=== PATIENT | female | born 1965 | race African-American/Black ===

== ENCOUNTER 2017-12-07 21:14 | Emergency (ER) | payer OTHER ==
--- NOTE | 2017-12-07 22:27 | ER ---
Nurse's Notes [facility] Name: Raúl Rayo Age: 52 yrs Sex: Female : 1965 Arrival Date: 12/07/2017 Time: 21:16 Bed 12 Private MD: Artemio Brunner V Diagnosis: Cutaneous abscess of right lower limb Presentation: 12/07 21:27 Presenting complaint: Patient states: Abscess to right lower leg that she noticed on lp1 , worse now; redness around site, pus filled. Transition of care: patient was not received from another setting of care. Onset of symptoms was December 07, 2017. Care prior to arrival: None. 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 - Social history:: Smoking status: Patient/guardian denies using tobacco. Screenin:30 Abuse screen: Denies threats or abuse. Denies injuries from another. Nutritional lp1 screening: No deficits noted. Tuberculosis screening: No symptoms or risk factors identified. Fall Risk None identified. Assessment: 21:42 General: Appears in no apparent distress. uncomfortable, Behavior is calm, cooperative, bs1 appropriate for age. Pain: Complains of pain in right lower leg/chin Pain does not radiate. Pain currently is 7 out of 10 on a pain scale. Quality of pain is described as throbbing. Neuro: Level of Consciousness is awake, alert, obeys commands, Oriented to person, place, time, situation, Appropriate for age. Cardiovascular: Denies chest pain, lightheadedness, palpitations, shortness of breath, Heart tones S1 S2 present Capillary refill < 3 seconds Patient's skin is warm and dry. Respiratory: Airway is patent Trachea midline Respiratory effort is even, unlabored, Respiratory pattern is regular, symmetrical, Breath sounds are clear bilaterally. Denies shortness of breath at rest, on exertion. GI: No deficits noted. No signs and/or symptoms were reported involving the gastrointestinal system. : No deficits noted. No signs and/or symptoms were reported regarding the genitourinary system. EENT: No deficits noted. No signs and/or symptoms were reported regarding the EENT system. Derm: Skin abscess. puss pocket noted to right lower leg/chin. Around the site, leg swollen/red. Hot to the touch. Musculoskeletal: Circulation, motion, and sensation intact. Capillary refill < 3 seconds, Range of motion: limited in right lower leg Swelling present in right lower leg. 22:20 Reassessment: No changes from previously documented assessment. Patient and/or family bs1 updated on plan of care and expected duration. Pain level reassessed. Patient is alert, oriented x 3, equal unlabored respirations, skin warm/dry/pink. 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 Patient tolerated well. Wound culture sent. Vital Signs: 21:29 BP 147 / 89; Pulse 102; Resp 18; Temp 98.5(O); Pulse Ox 97% on R/A; Weight 132.45 kg; lp1 Height 5 ft. 8 in. (172.72 cm); Pain 7/10; 22:40 BP 136 / 72; Pulse 92; Resp 14; Temp 98.0(O); Pulse Ox 98% on R/A; Pain 4/10; bs1 21:29 Body Mass Index 44.40 (132.45 kg, 172.72 cm) lp1 ED Course: 21:16 Patient arrived in ED. mr 21:16 Artemio Brunner MD is Private Physician. mr 21:27 Triage completed. lp1 21:27 Arm band placed on left wrist. lp1 21:39 Juliane Santoro RN is Primary Nurse. bs1 21:42 [facility] pm1 21:42 Simón Paz MD is Attending Physician. pm1 21:47 Patient has correct armband on for positive identification. Call light in reach. bs1 22:20 Assist provider with I \T\ D: of an abscess on right lower leg/chin Set up I\T\D tray. bs 1 Performed by Flako Shelton NP Culture sent to lab. Dressing with 4X4s, tape wrapped in kerlix Patient tolerated well. 22:26 Artemio Brunner MD is Referral Physician. pm1 22:31 Wound Culture Sent. bs1 22:42 Patient did not have IV access during this emergency room visit. bs1 Administered Medications: 22:25 Drug: Lidocaine (1 %) 5 ml Volume: 5 ml; Route: Infiltration; bs1 22:39 Follow up: Response: No adverse reaction bs1 22:38 Drug: Bactrim (160 mg-800 mg (DS) 1 tablet Route: PO; bs1 22:38 Follow up: Response: No adverse reaction bs1 Outcome: 22:26 Discharge ordered by . pm1 22:41 Discharged to home ambulatory. bs1 22:41 Condition: stable 22:41 Discharge instructions given to patient, Instructed on discharge instructions, follow up and referral plans. medication usage, Demonstrated understanding of instructions, follow-up care, medications, Prescriptions given X 1. 22:42 Patient left the ED. bs1 Addendum: 12/11/2017 12:12 Addendum: Culture Results: Positive urine culture. No further action required. Bacteria s s sensitive to prescribed antibiotic. Signatures: Caitlin Riggs mr Mercedes Camarillo, RN RN Lilia Downs RN RN lp1 Flako Shelton NP PACKING AND WRAPPING SUPERVISOR pm1 Juliane Santoro RN RN bs1
--- NOTE | 2017-12-07 22:27 | EDPHYS ---
Physician Documentation [facility] Name: Raúl Rayo Age: 52 yrs Sex: Female : 1965 Arrival Date: 12/07/2017 Time: 21:16 Bed 12 Private MD: Artemio Brunner V ED Physician Simón Paz HPI: 12/07 22:20 This 52 yrs old Black Female presents to ER via Ambulatory with complaints of Abscess. pm1 22:20 The patient presents with an abscess of the right ruvalcaba. Description: pointed. Onset: pm1 The symptoms/episode began/occurred 3 day(s) ago. Possible cause(s): unknown. Associated signs and symptoms: Pertinent negatives: discharge, drainage, fever. Modifying factors: the symptoms are alleviated by nothing, the symptoms are aggravated by nothing. The patient has experienced a previous episode, many years ago. The patient has not recently seen a physician, the patient's primary care provider is Dr. Brunner. Patient with small pimple like lesion to right ruvalcaba that started on . Increased in size to dime sized with some redness around it. No fevers. No drainage. 22:20 Tetanus less than 5 years old. 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 - Social history:: Smoking status: Patient/guardian denies using tobacco. ROS: 22:20 Constitutional: Negative for fever, chills, and weight loss, Eyes: Negative for injury, pm1 pain, redness, and discharge, ENT: Negative for injury, pain, and discharge, Neck: Negative for injury, pain, and swelling, Cardiovascular: Negative for chest pain, palpitations, and edema, Respiratory: Negative for shortness of breath, cough, wheezing, and pleuritic chest pain, Abdomen/GI: Negative for abdominal pain, nausea, vomiting, diarrhea, and constipation, Back: Negative for injury and pain, MS/Extremity: Negative for injury and deformity. 22:20 Skin: Positive for abscess, of the right ruvalcaba. Exam: 22:20 Constitutional: This is a well developed, well nourished patient who is awake, alert, pm1 and in no acute distress. Head/Face: Normocephalic, atraumatic. Chest/axilla: Normal chest wall appearance and motion. Nontender with no deformity. No lesions are appreciated. Cardiovascular: Regular rate and rhythm with a normal S1 and S2. No gallops, murmurs, or rubs. No pulse deficits. Respiratory: Lungs have equal breath sounds bilaterally, clear to auscultation and percussion. No rales, rhonchi or wheezes noted. No increased work of breathing, no retractions or nasal flaring. Abdomen/GI: Soft, non-tender, with normal bowel sounds. No distension or tympany. No guarding or rebound. No evidence of tenderness throughout. Back: No spinal tenderness. No costovertebral tenderness. Full range of motion. 22:20 Skin: abscess, that is small, approximately 1 cm(s), of the right ruvalcaba, small surrounding redness, no fluctuance or induration. Vital Signs: 21:29 BP 147 / 89; Pulse 102; Resp 18; Temp 98.5(O); Pulse Ox 97% on R/A; Weight 132.45 kg; lp1 Height 5 ft. 8 in. (172.72 cm); Pain 7/10; 22:40 BP 136 / 72; Pulse 92; Resp 14; Temp 98.0(O); Pulse Ox 98% on R/A; Pain 4/10; bs1 21:29 Body Mass Index 44.40 (132.45 kg, 172.72 cm) lp1 Procedures: 22:25 I \T\ D: Incision and drainage was performed for an abscess of the right right ruvalcaba pm1 Prepped with Betadine, Anesthetized with 3 ml's 1% Lidocaine. Incised with #11 blade. Drained small amount purulent fluid. Packed with not packable. Dressing: sterile 4x4 gauze, the patient tolerated the procedure well. MDM: 21:46 Patient medically screened. pm1 22:25 Data reviewed: vital signs. Data interpreted: Pulse oximetry: on room air is 97 %. pm1 Interpretation: normal. Counseling: I had a detailed discussion with the patient and/or guardian regarding: the historical points, exam findings, and any diagnostic results supporting the discharge/admit diagnosis, the need for outpatient follow up, to return to the emergency department if symptoms worsen or persist or if there are any questions or concerns that arise at home. 12/07 22:08 Order name: Wound Culture pm1 12/07 22:01 Order name: Incision \T\ Drainage Setup; Complete Time: 22:32 pm1 Administered Medications: 22:25 Drug: Lidocaine (1 %) 5 ml Volume: 5 ml; Route: Infiltration; bs1 22:39 Follow up: Response: No adverse reaction bs1 22:38 Drug: Bactrim (160 mg-800 mg (DS) 1 tablet Route: PO; bs1 22:38 Follow up: Response: No adverse reaction bs1 Disposition: 12/07/17 22:26 Discharged to Home. Impression: Cutaneous abscess of right lower limb. - Condition is Stable. - Discharge Instructions: Abscess, Incision and Drainage. - Prescriptions for Bactrim DS 800- 160 mg Oral Tablet - take 1 tablet by ORAL route every 12 hours for 10 days; 20 tablet. - Medication Reconciliation Form, Thank You Letter, Antibiotic Education form. - Follow up: Emergency Department; When: As needed; Reason: Worsening of condition. Follow up: Artemio Brunner MD; When: 2 - 3 days; Reason: Recheck today's complaints, Continuance of care, Re-evaluation by your physician. - Problem is new. - Symptoms have improved. Addendum: 12/11/2017 06:22 Co-signature as Attending Physician, Simón Paz MD. g s Signatures: Dispatcher [employer] EDLilia Phan RN RN lp1 Flako Shelton, FILLER PICKER FILLER PICKER pm1 Simón Paz MD MD gs Salazar, Brittany, RN RN bs1
[2017-12-07] MEDS ORDERED: LIDOCAINE 1% MPF 5 ML VIAL ONE (22:30)
[2017-12-07] MEDS ORDERED: SMZ./TMP. 800/160 MG TABLET ONE (22:52)
[2017-12-07 22:59] VITALS: BP 136/72; TEMP 98; O2SAT 98
== END 2017-12-07 22:42 | disposition home or self-care (01) ==
LOC: ER 21:14
PROC: 0J9N0ZZ Drainage of Right Lower Leg Subcutaneous Tissue and Fascia, Open Approach (ICD-10-PCS; principal; 2017-12-07)
DX: L02.415 Cutaneous abscess of right lower limb (principal); I10 Essential (primary) hypertension; E11.9 Type 2 diabetes mellitus without complications; Z79.4 Long term (current) use of insulin
CPT/HCPCS: 87070; 87077; 87186; 87205; 99284

== ENCOUNTER 2020-06-10 16:13 | Inpatient (IN) | payer OTHER ==
--- OUTSIDE RECORDS SUMMARY | 2020-06-10 16:14 | XMS REPORT | Continuity of Care Document ---
:1965 Author Organization [facility] t Address [address] [place] [address] Care Team Providers Name Role Phone Camilo Coronado MD Attending Clinician Kimberley GUERRA Attending Clinician Doctor Unassigned, Name Attending Clinician Unavailable Problems This patient has no known problems. Allergies, Adverse Reactions, Alerts This patient has no known allergies or adverse reactions. Medications This patient has no known medications. Procedures This patient has no known procedures. Encounters Start End Encounter Admission Attending Care Care Encounter Source Date/Time Date/Time Type Type Clinicians Facility Department ID 2019-10-30 2019-10-31 Emergency [facility] [id number] 21:41:02 00:12:00 Andree Aragon [id number] [place] [id number] [place] [id number] 2019-10-30 2019-10-30 Urgent [facility] [id number] 20:49:10 21:04:10 Care [facility] [id number] Surgical [id number] [place] [id number] [place] 2019-10-30 2019-10-30 Orders Doctor [place]GAD[place]O [id number] 00:00:00 00:00:00 Only Unassigned, EDMOND [id number] [facility] [id number] Results This patient has no known results.
[2020-06-10] MEDS ORDERED: dexAMETHasone 10 MG/ML VIAL ONE (16:50)
[2020-06-10] MEDS ORDERED: NA CHLORIDE 0.9% 500 ML ONE (16:50)
[2020-06-10 17:26] LABS: Basophils % 0.2 % (0-1.3); Lymphocytes % 9.3 % (15.3-44.8); MPV 9.6 fL (7.6-11.3); Protime INR 1.16; RBC Red Blood Cell Count 4.72 M/uL (3.86-4.86)
[2020-06-10 18:01] LABS: ALT/SGPT 26 U/L (12-78); AST/SGOT 36 U/L (15-37); Albumin 3.2 g/dL (3.4-5.0); Alkaline Phosphatase 59 U/L (45-117); BUN Blood Urea Nitrogen 10 mg/dL (7-18); Bicarbonate 21 mmol/L (21-32); Bilirubin Direct 0.1 mg/dL (0-0.2); Bilirubin Total 0.3 mg/dL (0.2-1.0); Glucose Level 149 mg/dL (74-106); Magnesium 2.2 mg/dL (1.8-2.4); NT PRO-BNP 41 pg/mL (<125); Potassium 3.9 mmol/L (3.5-5.1); Protein, Total 8.8 g/dL (6.4-8.2); Sodium Level 139 mmol/L (136-145); Troponin (Emerg Dept Use Only) < 0.02 ng/mL (0.0-0.045)
--- NOTE | 2020-06-10 18:36 | RAD REPORT ---
EXAM DESCRIPTION: RAD - Chest Single View - 06/10/2020 6:04 pm CLINICAL HISTORY: SOB, history positive COVID test and family member COMPARISON: Two view chest August 2018 TECHNIQUE: AP portable chest image was obtained 06/10/2020 6:04 pm . FINDINGS: Consolidation is present in the inferior aspect of the right upper lobe with a large conso lidation in the lateral right lung base. Airspace opacification present in the mid lower left lung fi eld. Very slight right tracheal shift present. Heart size is normal. No measurable pleural effusion a nd no pneumothorax. No acute bony abnormality seen. No acute aortic findings suspected. IMPRESSION: Bilateral airspace disease with large areas consolidation in the right lung field. Given the provided history, bilateral COVID pneumonia is the most likely etiology.
--- NOTE | 2020-06-10 18:45 | EDPHYS ---
Physician Documentation [facility] Name: Raúl Rayo Age: 54 yrs Sex: Female : 1965 Arrival Date: 06/10/2020 Time: 16:22 Bed 4 Private MD: Gerard Parada HPI: 06/10 16:35 This 54 yrs old Black Female presents to ER via EMS with complaints of Breathing cp Difficulty. 16:35 The patient has shortness of breath at rest. 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 - Social history:: Smoking status: Patient denies any tobacco usage or history of. ROS: 16:40 Constitutional: Negative for body aches, chills, fever, poor PO intake. cp 16:40 Cardiovascular: Negative for chest pain, edema, palpitations. cp 16:40 Eyes: Negative for injury, pain, redness, and discharge. cp 16:40 ENT: Negative for ear pain, sore throat, difficulty swallowing, difficulty handling secretions. 16:40 Respiratory: Positive for cough, "sounds productive", shortness of breath, at rest. 16:40 Abdomen/GI: Negative for abdominal pain, vomiting, diarrhea, constipation. 16:40 Skin: Negative for cellulitis, rash. 16:40 Neuro: Negative for altered mental status, headache, syncope, weakness. 16:40 All other systems are negative. Exam: 16:43 Constitutional: The patient appears alert, awake, non-diaphoretic, non-toxic, well cp developed, well nourished, in obvious distress, moderately distressed. 16:43 Head/Face: Normocephalic, atraumatic. cp 16:43 Eyes: Periorbital structures: appear normal, Pupils: equal, round, and reactive to light and accomodation, Extraocular movements: intact throughout, Conjunctiva: normal, no exudate, no injection, Sclera: no appreciated abnormality, Lids and lashes: appear normal, bilaterally. 16:43 ENT: External ear(s): are unremarkable, Nose: is normal, Mouth: Lips: moist, Oral mucosa: pink and intact, moist, Posterior pharynx: Airway: no evidence of obstruction, patent. 16:43 Neck: ROM/movement: is normal, is supple, no meningismus, no nuchal rigidity. 16:43 Chest/axilla: Inspection: normal. 16:43 Cardiovascular: Rate: tachycardic, Rhythm: regular, Edema: is not appreciated, JVD: is not appreciated. 16:43 Respiratory: moderate respiratory distress is noted, Respirations: labored breathing, that is moderate, shallow respirations, that is moderate, tachypnea, that is moderate, Breath sounds: bronchial sounds, that are moderate, are heard diffusely, stridor, is not appreciated, wheezing: is not appreciated. 16:43 Abdomen/GI: Inspection: abdomen appears normal, Palpation: abdomen is soft and non-tender, in all quadrants, rebound tenderness, is not appreciated, involuntary guarding, is not appreciated. 16:43 Back: ROM is normal. 16:43 Skin: no rash present. 16:43 Neuro: Orientation: to person, place \\T\\ time. Mentation: is normal, Motor: moves all fours, strength is normal. 16:57 ECG was reviewed by the Attending Physician. cp Vital Signs: 16:22 BP 158 / 91; Pulse 116; Resp 38; Pulse Ox 57% on R/A; Weight 130.63 kg; Height 5 ft. 8 em in. (172.72 cm); Pain 5/10; 16:23 Pulse Ox 85% on Non-rebreather mask; em 16:30 Temp 99.0; iw 17:21 BP 137 / 82; Pulse 117; Resp 18; Pulse Ox 92% on 70% BiPAP; em 18:00 BP 136 / 71; Pulse 113; Resp 24; Pulse Ox 93% on BiPAP; em 19:24 BP 150 / 88; Pulse 115; Resp 20; Pulse Ox 94% on BiPAP; mg2 20:30 BP 146 / 87; Pulse 108; Resp 22; Pulse Ox 93% on BiPAP; sg 21:33 BP 158 / 89; Pulse 108; Resp 20; Temp 99.1; Pulse Ox 93% on BiPAP; sg 16:22 Body Mass Index 43.79 (130.63 kg, 172.72 cm) em MDM: 16:28 Patient medically screened. khalif 17:59 Physician consultation: Artemio Brunner MD was called at 17:59, left message on voicemail. 18:00 Data reviewed: vital signs, nurses notes, lab test result(s), EKG, radiologic studies, cp plain films. 18:00 Test interpretation: by ED physician or midlevel provider: ECG, chest xray shows cp bilateral lung opacification. 18:42 Physician consultation: Artemio Brunner MD was called at 18:43, was contacted at 18:43, regarding admission, to the ICU, patient's condition, would like consultation with Dr. Parra. 06/10 16:27 Order name: Basic Metabolic Panel cp 06/10 16:27 Order name: CBC with Diff cp 06/10 16:27 Order name: LFT's cp 06/10 16:27 Order name: Magnesium cp 06/10 16:27 Order name: NT PRO-BNP cp 06/10 16:27 Order name: PT-INR; Complete Time: 17:51 cp 06/10 16:27 Order name: Troponin (emerg Dept Use Only); Complete Time: 18:29 cp 06/10 16:27 Order name: Blood Culture Adult (2) cp 06/10 16:27 Order name: Procalcitonin; Complete Time: 18:29 cp 06/10 16:27 Order name: Lactate; Complete Time: 17:51 cp 06/10 17:53 Interpretation: Within normal limits. cp 06/10 16:27 Order name: Flu; Complete Time: 18:29 cp 06/10 16:27 Order name: D-Dimer; Complete Time: 17:51 cp 06/10 17:52 Interpretation: D-DIMER 496; Reviewed. cp 06/10 16:27 Order name: Basic Metabolic Panel; Complete Time: 18:29 EDMS 06/10 16:27 Order name: CRP; Complete Time: 18:29 cp 06/10 16:27 Order name: CBC with Automated Diff; Complete Time: 20:53 EDMS 06/10 17:52 Interpretation: Normal except: WBC 11.1; RDW 15.6; RAISSA% 87.8; LYM% 9.3; MN% 2.7; NEUT A cp 9.7. 06/10 16:27 Order name: Liver (Hepatic) Function; Complete Time: 18:29 EDMS 06/10 16:27 Order name: Magnesium; Complete Time: 18:29 EDMS 06/10 16:27 Order name: NT PRO-BNP; Complete Time: 18:29 EDMS 06/10 18:13 Order name: SARS-COV-2 RT PCR; Complete Time: 20:53 EDMS 06/10 19:36 Order name: Basic Metabolic Panel EDMS 06/10 19:36 Order name: Basic Metabolic Panel EDMS 06/10 19:36 Order name: CBC with Automated Diff EDMS 06/10 19:36 Order name: CBC with Automated Diff EDMS 06/10 19:36 Order name: Lipid Profile EDMS 06/10 19:36 Order name: Lipid Profile EDMS 06/10 19:36 Order name: Troponin I EDMS 06/10 19:36 Order name: Troponin I; Complete Time: 21:56 EDMS 06/10 19:36 Order name: Troponin I EDMS 06/10 20:17 Order name: Manual Differential; Complete Time: 20:54 EDMS 06/10 20:54 Interpretation: Normal except: SEGS 85; BANDS [F] 2; LYM 13. cp 06/10 16:27 Order name: XRAY Chest (1 view); Complete Time: 20:54 cp 06/10 16:27 Order name: EKG; Complete Time: 16:28 cp 06/10 16:27 Order name: Cardiac monitoring; Complete Time: 17:20 cp 06/10 16:27 Order name: EKG - Nurse/Tech; Complete Time: 17:20 cp 06/10 16:27 Order name: IV Saline Lock; Complete Time: 17:20 cp 06/10 16:27 Order name: Labs collected and sent; Complete Time: 16:29 cp 06/10 16:27 Order name: O2 Per Protocol; Complete Time: 16:29 cp 06/10 16:27 Order name: O2 Sat Monitoring; Complete Time: 16:29 cp 06/10 16:27 Order name: Document PUI#; Complete Time: 16:28 cp 06/10 16:27 Order name: Droplet/Contact Precautions; Complete Time: 16:29 cp 06/10 16:27 Order name: Notify Health Dept [phone]/ ; Complete Time: 16:28 cp 06/10 18:14 Order name: BIPAP eb 06/10 19:36 Order name: CONS Physician Consult EDNM 06/10 19:36 Order name: Respiratory Therapy Consult EDNM 06/10 19:36 Order name: Consistent Carb (ADA) [address] EDNM 06/10 20:28 Order name: Urine Dipstick--Ancillary (enter results) ar5 06/10 20:53 Order name: Accucheck Blood Glucose; Complete Time: 21:01 cp 06/10 21:13 Order name: Glucose, Ancillary Testing; Complete Time: 21:56 EDMS EC:57 Rate is 113 beats/min. Rhythm is regular. AR interval is normal. QRS interval is cp normal. QT interval is normal. Interpreted by me. Reviewed by me. Administered Medications: 17:00 Drug: Decadron - Dexamethasone 6 mg Route: IVP; Site: left antecubital; em 22:37 Follow up: Response: No adverse reaction mg2 17:00 Drug: NS 0.9% 500 ml Route: IV; Rate: 1 bolus; Site: left antecubital; em 22:36 Follow up: Response: No adverse reaction; IV Status: Completed infusion; IV Intake: mg2 500ml 19:24 Drug: Rocephin - (cefTRIAXone) 2 grams Route: IVPB; Infused Over: 30 mins; Site: left mg2 antecubital; 22:37 Follow up: Response: No adverse reaction; IV Status: Completed infusion mg2 19:24 Drug: Zithromax 500 mg Route: IVPB; Infused Over: 1 hrs; Site: left antecubital; mg2 22:36 Follow up: Response: No adverse reaction; IV Status: Completed infusion; IV Intake: mg2 250ml Point of Care Testing: Blood Glucose: 21:02 Blood Glucose: 185 mg/dL; sg Ranges: Critical Glucose Levels:Adult <50 mg/dl or >400 mg/dl <40 mg/dl or >180 mg/dl Disposition: 06/11 06:03 Co-signature as Attending Physician, Gerard Jesus MD I agree with the assessment and khalif plan of care. Disposition: 06/10/20 18:44 Hospitalization ordered by Artemio Brunner for Inpatient Admission. Preliminary diagnosis are Respiratory failure, unspecified with hypoxia, Pneumonia in diseases classified elsewhere, Coronavirus infection, unspecified. - Bed requested for Intensive Care Unit. - Status is Inpatient Admission. mg2 - Condition is Serious. - Problem is new. - Symptoms have improved. Signatures: Dispatcher [employer] EDNM Gerard Jesus MD MD cha Munoz, Edgar, RN RN em Rory Johnson, CAMPUS SAFETY OFFICER-C CAMPUS SAFETY OFFICER-Cla1 Gerard Johnson PA PA cp Sharonda Cox, RN RN cg Devang Rooney RN RN mg2 Corrections: (The following items were deleted from the chart) 06/10 18:13 16:28 CORONAVIRUS+MR.LAB.BRZ ordered. [facility] 20:16 18:44 Hospitalization Ordered by Artemio Brunner MD for Inpatient Admission. Preliminary cp diagnosis is Respiratory failure, unspecified with hypoxia; Pneumonia in diseases classified elsewhere. Bed requested for Intensive Care Unit. Status is Inpatient Admission. Condition is Serious. Problem is new. Symptoms have improved. 21:54 20:16 06/10/2020 18:44 Hospitalization Ordered by Artemio Brunner MD for Inpatient cg Admission. Preliminary diagnosis is Respiratory failure, unspecified with hypoxia; Pneumonia in diseases classified elsewhere; Coronavirus infection, unspecified. Bed requested for Intensive Care Unit. Status is Inpatient Admission. Condition is Serious. Problem is new. Symptoms have improved. 22:43 21:54 06/10/2020 18:44 Hospitalization Ordered by Artemio Brunner MD for Inpatient mg2 Admission. Preliminary diagnosis is Respiratory failure, unspecified with hypoxia; Pneumonia in diseases classified elsewhere; Coronavirus infection, unspecified. Bed requested for Intensive Care Unit. Status is Inpatient Admission. Condition is Serious. Problem is new. Symptoms have improved. 06/11 04:08 06/10 16:15 Constitutional: The patient appears alert, awake, non-diaphoretic, cp non-toxic, well developed, well nourished, in obvious distress, moderately distressed, cp
--- NOTE | 2020-06-10 18:45 | ER ---
Nurse's Notes [facility] Name: Raúl Rayo Age: 54 yrs Sex: Female : 1965 Arrival Date: 06/10/2020 Time: 16:22 Bed 4 Private MD: Diagnosis: Respiratory failure, unspecified with hypoxia;Pneumonia in diseases classified elsewhere;Coronavirus infection, unspecified Presentation: 06/10 16:22 Chief complaint: EMS states: has been feeling bad for about a week, was 70% at RA on em arrival, placed on nonrebreather and was in the low 92 %, pt reports fever, one family member tested positive for covid a few days ago, sinus tach on monitor. Coronavirus screen: Client denies travel out of the [place] in the last 14 days. cough unrelated to allergies, difficulty breathing, fever, Client presents with at least one sign or symptom that may indicate coronavirus-19. Standard/surgical mask placed on the client. Provider contacted for isolation considerations. Ebola Screen: Patient negative for fever greater than or equal to 101.5 degrees Fahrenheit, and additional compatible Ebola Virus Disease symptoms Patient denies exposure to infectious person. Patient denies travel to an Ebola-affected area in the 21 days before illness onset. No symptoms or risks identified at this time. Initial Sepsis Screen: Does the patient meet any 2 criteria? RR > 20 per min. HR > 90 bpm. Yes Does the patient have a suspected source of infection? Yes: Productive cough/pneumonia If YES to both, name of provider notified: Gerard MCWILLIAMS. Risk Assessment: Do you want to hurt yourself or someone else? Patient reports no desire to harm self or others. Onset of symptoms was June 03, 2020. 16:22 Method Of Arrival: [facility] em 16:22 Acuity: DULCE 2 em Triage Assessment: 22:31 General: Appears in no apparent distress. comfortable. Respiratory: Onset: The mg2 symptoms/episode began/occurred gradually, the patient has mild shortness of breath. PRODUCTION ASSOCIATE: 16:27 LMP N/A - Post-menopause em Historical: - Allergies: 16:27 No Known Allergies; em - PMHx: 16:27 Diabetes - IDDM; Hypertension; neuropathy; em - PSHx: 16:27 neck surgery; em - Immunization history:: Adult Immunizations up to date. - Social history:: Smoking status: Patient denies any tobacco usage or history of. Screenin:28 Abuse screen: Denies threats or abuse. Nutritional screening: No deficits noted. em Tuberculosis screening: No symptoms or risk factors identified. Fall Risk None identified. Assessment: 16:20 General: Appears uncomfortable, obese, Behavior is cooperative, restless, Reports fever em for > 3 days. Pain: Complains of pain in right arm Pain currently is 5 out of 10 on a pain scale. Neuro: Level of Consciousness is awake, alert, obeys commands, Oriented to person, place, time, situation, Appropriate for age. Cardiovascular: Patient's skin is warm and dry. Rhythm is sinus tachycardia. Respiratory: Reports cough that is non-productive, Airway is patent Respiratory effort is even, labored, Respiratory pattern is tachypnea Breath sounds are diminished bilaterally. GI: Patient currently denies nausea, vomiting. Derm: Skin is intact, is healthy with good turgor, Skin is pink, warm \T\ dry. Musculoskeletal: Capillary refill < 3 seconds, Range of motion: intact in all extremities. 16:29 Reassessment: RT at bedside putting pt on bipap. em 16:50 Reassessment: Patient appears in no apparent distress at this time. Patient states em feeling better. Patient states symptoms have improved. 17:50 Reassessment: Patient appears in no apparent distress at this time. Patient and/or em family updated on plan of care and expected duration. Pain level reassessed. Patient is alert, oriented x 3, equal unlabored respirations, skin warm/dry/pink. 19:24 Reassessment: patient in bipap. not in distress. Patient denies pain at this time. mg2 19:55 Reassessment: per Sherin inside lab, pt is positive for COVID at this time. sg 20:27 Reassessment: patient's sister Elizabeth updated about the patient's condition. mg2 Vital Signs: 16:22 BP 158 / 91; Pulse 116; Resp 38; Pulse Ox 57% on R/A; Weight 130.63 kg; Height 5 ft. 8 em in. (172.72 cm); Pain 5/10; 16:23 Pulse Ox 85% on Non-rebreather mask; em 16:30 Temp 99.0; iw 17:21 BP 137 / 82; Pulse 117; Resp 18; Pulse Ox 92% on 70% BiPAP; em 18:00 BP 136 / 71; Pulse 113; Resp 24; Pulse Ox 93% on BiPAP; em 19:24 BP 150 / 88; Pulse 115; Resp 20; Pulse Ox 94% on BiPAP; mg2 20:30 BP 146 / 87; Pulse 108; Resp 22; Pulse Ox 93% on BiPAP; sg 21:33 BP 158 / 89; Pulse 108; Resp 20; Temp 99.1; Pulse Ox 93% on BiPAP; sg 16:22 Body Mass Index 43.79 (130.63 kg, 172.72 cm) em ED Course: 16:22 Patient arrived in ED. em 16:22 Gerard Johnson PA is PHCP. cp 16:23 Gerard Jesus MD is Attending Physician. cp 16:26 Triage completed. em 16:27 Arm band placed on. em 16:28 Praful Castellon, RN is Primary Nurse. em 16:28 Patient has correct armband on for positive identification. Placed in gown. Bed in low em position. Call light in reach. Side rails up X2. compliance monitor on. Pulse ox on. NIBP on. 17:00 Initial lab(s) drawn, by wa, sent to lab. Inserted saline lock: 22 gauge in left em antecubital area, using aseptic technique. Blood collected. 18:04 XRAY Chest (1 view) In Process Unspecified. EDMS 18:43 Artemio Brunner MD is Hospitalizing Provider. cp 20:15 Assisted to bedside commode. sg 20:31 Primary Nurse role handed off by Praful Castellon, RN sg 20:31 Dani Pulliam, SHARLENE is Primary Nurse. sg 22:31 No provider procedures requiring assistance completed. Patient admitted, IV remains in mg2 place. Administered Medications: 17:00 Drug: Decadron - Dexamethasone 6 mg Route: IVP; Site: left antecubital; em 22:37 Follow up: Response: No adverse reaction mg2 17:00 Drug: NS 0.9% 500 ml Route: IV; Rate: 1 bolus; Site: left antecubital; em 22:36 Follow up: Response: No adverse reaction; IV Status: Completed infusion; IV Intake: mg2 500ml 19:24 Drug: Rocephin - (cefTRIAXone) 2 grams Route: IVPB; Infused Over: 30 mins; Site: left mg2 antecubital; 22:37 Follow up: Response: No adverse reaction; IV Status: Completed infusion mg2 19:24 Drug: Zithromax 500 mg Route: IVPB; Infused Over: 1 hrs; Site: left antecubital; mg2 22:36 Follow up: Response: No adverse reaction; IV Status: Completed infusion; IV Intake: mg2 250ml Point of Care Testing: Blood Glucose: 21:02 Blood Glucose: 185 mg/dL; sg Ranges: Intake: 22:36 IV: 500ml; Total: 500ml. mg2 22:36 IV: 250ml; Total: 750ml. mg2 Outcome: 18:44 Decision to Hospitalize by Provider. cp 22:38 Admitted to ICU accompanied by tech, via stretcher, room 6, with oxygen, with chart, mg2 Report called to SHARLENE Barlow 22:38 Condition: stable 22:38 Instructed on the need for admit, Demonstrated understanding of instructions. 22:43 Patient left the ED. mg2 Signatures: Dispatcher [employer] Dani Georges RN RN sg Praful Castellon RN RN em Williams, Irene, RN RN iw Gerard Johnson, POPPY PA cp Devang Rooney RN RN mg2 Corrections: (The following items were deleted from the chart) 20:27 19:24 Reassessment: patient in bipap. not on distress. mg2 mg2
[2020-06-10] MEDS ORDERED: CEFTRIAXONE/SWI 1gm 2 GM/20 ML SYR ONE (19:20)
[2020-06-10] MEDS ORDERED: NA CHLORIDE 0.9% 250 ML ONE (19:20)
[2020-06-10] MEDS ORDERED: AZITHROMYCIN 500 MG INJ IVPB ONE (19:20)
[2020-06-10] MEDS ORDERED: GLUCAGON 1 MG/VIAL IM PRN ×2 (19:30→22:06)
[2020-06-10] MEDS ORDERED: D50W 25 GM/50 ML SYRINGE/VIAL IV PRN ×2 (19:30→22:06)
[2020-06-10] MEDS ORDERED: ONDANSETRON 4 MG/2 ML VIAL IV PRN (19:30)
[2020-06-10 20:17] LABS: Blood Morphology Comment NOT SEEN (NOT SEEN); Platelet Estimate ADEQ
[2020-06-10 22:16] LABS: Urine Blood TRACE (NEG); Urine Glucose 2+ (NEG); Urine Protein 2+ (NEG); Urine Specific Gravity 1.025 (1.005-1.030); Urine pH 5.5 (5.0-7.0)
[2020-06-10] MEDS: FAMOTIDINE 20 MG/2 ML VIAL IV SCH (23:15)
[2020-06-10] MEDS: INSULIN -REGULAR HUMAN 50 UNIT/0.5 ML ML SQ SCH (23:15)
[2020-06-10] MEDS: NA CHLORIDE 0.9% 1,000 ML IV SCH (23:15)
[2020-06-11] MEDS: NA CHLORIDE 0.9% 1,000 ML IV SCH (02:38)
[2020-06-11 05:09] LABS: Absolute Lymphocytes (CBC) 0.8 K/uL (0.7-4.9); Basophils % 0.5 % (0-1.3); Hematocrit 41.1 % (36.0-45.0); Lymphocytes % 7.9 % (15.3-44.8); MPV 9.4 fL (7.6-11.3); RBC Red Blood Cell Count 4.68 M/uL (3.86-4.86)
[2020-06-11 05:19] LABS: BUN Blood Urea Nitrogen 14 mg/dL (7-18); Bicarbonate 16 mmol/L (21-32); Glucose Level 190 mg/dL (74-106); HDL Cholesterol 49 mg/dL (40-60); LDL Cholesterol, Calculated 39 (<130); Potassium 4.5 mmol/L (3.5-5.1); Sodium Level 142 mmol/L (136-145)
[2020-06-11] MEDS: METHYLPREDNISOLONE 40 MG INJ IV SCH ×2 (05:39→17:10)
[2020-06-11] MEDS ORDERED: FUROSEMIDE 20 MG/ 2ML VIAL IV ONE (08:22)
[2020-06-11] MEDS ORDERED: CYCLOBENZAPRINE 10 MG TAB PO PRN (08:38)
[2020-06-11] MEDS ORDERED: methocarbamoL 500 MG TAB PO PRN (08:38)
--- NOTE | 2020-06-11 08:39 | P.CNS ---
Date of Consult: 06/11/20 (Telephone visit) Reason for Consult: Respiratory failure from orozco virus infect Chief Complaint: Respiratory failure shortness of breath History of Present Illness: Patient is 54 years of age has been sick for about 1 week admitted with hypoxemia family member was also tested positive a few days ago for orozco virus she has admitted here to the ICU ray hypoxic on BiPAP. History of diabetes hypertension Allergies No Known Allergies Allergy (Unverified 11/13/15 15:45) Home Medications: Cyclobenzaprine [Flexeril*] 10 mg PO TID PRN 04/18/14 Esomeprazole Mag Trihydrate [Nexium] 40 mg PO DAILY 04/18/14 Fluticasone [Flonase 50MCG Nasal [place]*] 0.05 mg IH DAILY 04/18/14 Gabapentin [Neurontin*] 400 mg PO TID 04/18/14 Losartan Potassium [Cozaar*] 100 mg PO DAILY 04/18/14 Meclizine HCl [Antivert*] 25 mg PO TID PRN 04/18/14 Bisoprolol Fumarate/Hctz [Bisoprolol-Hctz 5-6.25 mg Tab] 1 tab PO DAILY 06/11/20 Empagliflozin/Metformin HCl [Synjardy 12.5-1,000 mg Tablet] 1 tab PO DAILY 06/11/20 Montelukast [Singulair*] 10 mg PO DAILY 06/11/20 Oxybutynin Chloride [Oxybutynin Chloride ER] 1 tab PO DAILY 06/11/20 methocarbamoL [Robaxin] 500 mg PO TID PRN 06/11/20 - Past Medical/Surgical History Diabetic: Yes -: dm -: asthma -: htn -: acid reflux -: neck sx - Family History Father Medical History: Diabetes Mother Medical History: Diabetes Sister Medical History: Diabetes - Social History Alcohol use: No CD- Drugs: No Caffeine use: Yes Place of Residence: Home Physical Examination Temp Pulse Resp BP Pulse Ox 98.8 F 96 H 31 H 162/81 H 85 L 06/11/20 04:00 06/11/20 06:00 06/11/20 06:00 06/11/20 06:00 06/11/20 06:00 Laboratory Data (last 24 hrs) 06/10/20 17:00: PT 13.7 H, INR 1.16 06/10/20 17:00: WBC 11.1 H, Hgb 13.3, Hct 41.0, Plt Count 265 06/10/20 17:00: Sodium 139, Potassium 3.9, BUN 10, Creatinine 0.84, Glucose 149 H, Magnesium 2.2, Total Bilirubin 0.3, AST 36, ALT 26, Alkaline Phosphatase 59 - Problems (1) Pneumonia due to severe acute respiratory syndrome coronavirus Current Visit: Yes Status: Acute Plan: Patient is 54 years of age with diabetes hypertension admitted with severe orozco virus pneumonia continue with BiPAP I have added diuretics could there with steroids Dc IV fluids continue with antibiotics chemistries reviewed patient is clinically stable
[2020-06-11] MEDS ORDERED: HOME MED 1 EA UNK (Esomeprazole Mag Trihydrate [Nexium] 40 MG) PO SCH (09:00)
[2020-06-11] MEDS ORDERED: METFORMIN HCL PO SCH (09:00)
[2020-06-11] MEDS ORDERED: THIAMINE HCL 100 MG TABLET PO SCH (09:00)
[2020-06-11] MEDS: FAMOTIDINE 20 MG/2 ML VIAL IV SCH (09:00)
[2020-06-11] MEDS ORDERED: EMPAGLIFLOZIN PO SCH (09:00)
[2020-06-11] MEDS: INSULIN -REGULAR HUMAN 50 UNIT/0.5 ML ML SQ SCH ×4 (09:05→20:37)
[2020-06-11] MEDS: VITAMIN D 1000 UNIT TAB PO SCH (09:10)
[2020-06-11] MEDS: THIAMINE HCL 100 MG TABLET PO SCH (09:10)
[2020-06-11] MEDS: SPIRONOLACTONE 25 MG TABLET PO SCH ×2 (09:10→20:36)
[2020-06-11] MEDS: ASPIRIN EC 81 MG TAB PO SCH (09:10)
[2020-06-11] MEDS: MONTELUKAST 10 MG TAB PO SCH (09:10)
[2020-06-11] MEDS: GABAPENTIN 400 MG CAP PO SCH ×3 (09:10→20:36)
[2020-06-11] MEDS: LOSARTAN POTASSIUM 50 MG TABLET PO SCH (09:10)
[2020-06-11] MEDS: CEFTRIAXONE/SWI 1gm 1 GM/10 ML SYR IV SCH (09:11)
[2020-06-11] MEDS: PANTOPRAZOLE 40MG TABLET PO SCH (09:12)
[2020-06-11] MEDS: BISOPROLOL/HCTZ 5/6.25MG TAB PO SCH (11:51)
[2020-06-11] MEDS: OXYBUTYNIN ER 5 MG TAB PO SCH (11:52)
[2020-06-11] MEDS: AZITHROMYCIN 250 MG TAB PO SCH (11:52)
--- NOTE | 2020-06-11 13:02 | P.HP ---
Certification for Inpatient Patient admitted to: Inpatient With expected LOS: >2 Midnights Practitioner: I am a practitioner with admitting privileges, knowledge of patient current condition, hospital course, and medical plan of care. Services: Services provided to patient in accordance with Admission requirements found in Title 42 Section 412.3 of the Code of Federal Regulations Patient History Date of Service: 06/11/20 Reason for admission: Respiratory failure shortness of breath History of Present Illness: MS. FELTON STARTED TO HAVE DYSPNEA TWO DAYS AGO. HER FAMILY ALSO TWO PEOPLE HAD SYMPTOMS ABOUT THE SAME TIME. SHE HAS NO COUGH, NO CHEST PAIN. SHE IS A NON COMPLIANT, OBESE DIABETIC THAT IS A RISK FACTOR FOR COVID INFECTIONS. Allergies No Known Allergies Allergy (Unverified 11/13/15 15:45) Home Medications: Cyclobenzaprine [Flexeril*] 10 mg PO TID PRN 04/18/14 Esomeprazole Mag Trihydrate [Nexium] 40 mg PO DAILY 04/18/14 Fluticasone [Flonase 50MCG Nasal [place]*] 0.05 mg IH DAILY 04/18/14 Gabapentin [Neurontin*] 400 mg PO TID 04/18/14 Losartan Potassium [Cozaar*] 100 mg PO DAILY 04/18/14 Meclizine HCl [Antivert*] 25 mg PO TID PRN 04/18/14 Bisoprolol Fumarate/Hctz [Bisoprolol-Hctz 5-6.25 mg Tab] 1 tab PO DAILY 06/11/20 Empagliflozin/Metformin HCl [Synjardy 12.5-1,000 mg Tablet] 1 tab PO DAILY 06/11/20 Montelukast [Singulair*] 10 mg PO DAILY 06/11/20 Oxybutynin Chloride [Oxybutynin Chloride ER] 1 tab PO DAILY 06/11/20 methocarbamoL [Robaxin] 500 mg PO TID PRN 06/11/20 - Past Medical/Surgical History Has patient received pneumonia vaccine in the past: Yes Diabetic: Yes -: dm -: asthma -: htn -: acid reflux -: neck sx - Family History Father -: Diabetes Mother -: Diabetes Sister -: Diabetes - Social History Smoking Status: Never smoker Alcohol use: No CD- Drugs: No Caffeine use: Yes Place of Residence: Home Review of Systems 10-point ROS is otherwise unremarkable General: Weakness, Malaise Respiratory: Shortness of Breath Physical Examination - Vital Signs Temperature: 98.8 F Blood Pressure: 167/90 Pulse: 107 Respirations: 21 Pulse Ox (%): 90 - Physical Exam General: Moderate distress, Obese HEENT: Atraumatic, PERRLA, Mucous membr. moist/pink, EOMI, Sclerae nonicteric Respiratory: Diminished Cardiovascular: Regular rate/rhythm (ON TELEMETRY.) Integumentary: No rashes Neurological: Normal gait, Normal speech, Normal strength at 5/5 x4 extr, Normal tone, Normal affect Lymphatics: No axilla or inguinal lymphadenopathy - Studies Laboratory Data (last 24 hrs) 06/10/20 17:00: PT 13.7 H, INR 1.16 06/10/20 17:00: WBC 11.1 H, Hgb 13.3, Hct 41.0, Plt Count 265 06/10/20 17:00: Sodium 139, Potassium 3.9, BUN 10, Creatinine 0.84, Glucose 149 H, Magnesium 2.2, Total Bilirubin 0.3, AST 36, ALT 26, Alkaline Phosphatase 59 Microbiology Data (last 24 hrs): 06/10/20 17:10 Nasopharnyx Influenza Type A Antigen Screen - Final 06/10/20 17:10 Nasopharnyx Influenza Type B Antigen Screen - Final Assessment and Plan - Problems (Diagnosis) (1) Diabetes Current Visit: Yes Status: Acute Plan: SHE IS NOT WATCHING DIET DESPITE ADVISE. SHE REFUSES TO GET ON INSULIN. PROGNOSIS IS GUARDED. Qualifiers: Diabetes mellitus type: type 2 Diabetes mellitus complication status: without complication (2) Pneumonia due to severe acute respiratory syndrome coronavirus Current Visit: Yes Status: Acute Plan: COVID PNEUMONIA. MODERATE TO SEVERE. STEROIDS IV. XARELTO PO. ZITHROMAX PO. REMDESIVIR, HCQ AND PLASMA EXCHANGE DO NOT HAVE PROVEN BENEFIT YET. DR. GUERRERO CONSULTED. - Advance Directives Does patient have a Living Will: No Does patient have a Durable POA for Healthcare: No
[2020-06-11] MEDS ORDERED: RIVAROXABAN 10 MG TABLET PO SCH (17:00)
[2020-06-11] MEDS: RIVAROXABAN 20 MG TABLET PO SCH (17:10)
[2020-06-11] MEDS ORDERED: AZITHROMYCIN IV 500 MG in NA CHLORIDE 0.9% 250 ML IVPB SCH (18:00)
[2020-06-11] MEDS: ATORVASTATIN 40 MG TAB PO SCH (20:35)
[2020-06-11] MEDS: MELATONIN 3 MG TABLET PO SCH (20:36)
[2020-06-11] MEDS ORDERED: INSULIN GLARGINE 100 UNITS/ML SQ SCH (21:00)
[2020-06-11] MEDS: ACETAMINOPHEN 325 MG TABLET PO PRN (22:30)
[2020-06-12] MEDS: METHYLPREDNISOLONE 40 MG INJ IV SCH (05:00)
[2020-06-12] MEDS: INSULIN -REGULAR HUMAN 50 UNIT/0.5 ML ML SQ SCH ×4 (08:12→20:16)
[2020-06-12] MEDS: SPIRONOLACTONE 25 MG TABLET PO SCH ×2 (08:12→20:15)
[2020-06-12] MEDS: LOSARTAN POTASSIUM 50 MG TABLET PO SCH (08:13)
[2020-06-12] MEDS: THIAMINE HCL 100 MG TABLET PO SCH (08:13)
[2020-06-12] MEDS: MONTELUKAST 10 MG TAB PO SCH (08:13)
[2020-06-12] MEDS: CEFTRIAXONE/SWI 1gm 1 GM/10 ML SYR IV SCH (08:13)
[2020-06-12] MEDS: PANTOPRAZOLE 40MG TABLET PO SCH (08:13)
[2020-06-12] MEDS: ASPIRIN EC 81 MG TAB PO SCH (08:13)
[2020-06-12] MEDS: VITAMIN D 1000 UNIT TAB PO SCH (08:13)
[2020-06-12] MEDS: GABAPENTIN 400 MG CAP PO SCH ×3 (08:13→20:15)
[2020-06-12] MEDS: BISOPROLOL/HCTZ 5/6.25MG TAB PO SCH (09:56)
[2020-06-12] MEDS: OXYBUTYNIN ER 5 MG TAB PO SCH (09:57)
[2020-06-12] MEDS: AZITHROMYCIN 250 MG TAB PO SCH (09:58)
--- NOTE | 2020-06-12 11:21 | P.PN ---
Subjective Date of Service: 06/12/20 Chief Complaint: Respiratory failure shortness of breath Condition stable still requiring high concentrations of oxygen on BiPAP no change Physical Examination - Vital Signs Temperature: 98.3 F Blood Pressure: 134/79 Pulse: 79 Respirations: 26 Pulse Ox (%): 91 Assessment & Plan - Problems (Diagnosis) (1) Pneumonia due to severe acute respiratory syndrome coronavirus Current Visit: Yes Status: Acute Plan: Respiratory failure from orozco virus continue to titrate sat to 85-90% prone position ventilation increase Solu-Medrol to 120 b.i.d. CRP is declining vital signs stable
--- NOTE | 2020-06-12 13:12 | P.PN ---
Subjective Date of Service: 06/12/20 Chief Complaint: Respiratory failure shortness of breath Subjective: Improving DYSPNEA HAS IMPROVED. SHE IS ABLE TO TALK WITH BIPAP ON. SHE GAVE ME HER SISTER'S NUMBER. SHE HAS NO CHEST PAIN. Review of Systems 10-point ROS is otherwise unremarkable General: Weakness, Malaise Respiratory: Shortness of Breath, As per HPI Physical Examination - Vital Signs Temperature: 98.3 F Blood Pressure: 134/79 Pulse: 79 Respirations: 26 Pulse Ox (%): 91 - Physical Exam General: Alert, Mild distress, Moderate distress, Obese Cardiovascular: Normal S1 S2 Assessment And Plan - Current Problems (Diagnosis) (1) Diabetes Current Visit: Yes Status: Acute Plan: SHE IS NOT WATCHING DIET DESPITE ADVISE. SHE REFUSES TO GET ON INSULIN. PROGNOSIS IS GUARDED. Qualifiers: Diabetes mellitus type: type 2 Diabetes mellitus complication status: without complication (2) Pneumonia due to severe acute respiratory syndrome coronavirus Current Visit: Yes Status: Acute Plan: COVID PNEUMONIA. MODERATE TO SEVERE. STEROIDS IV. XARELTO PO. ZITHROMAX PO. REMDESIVIR, HCQ AND PLASMA EXCHANGE DO NOT HAVE PROVEN BENEFIT YET. DR. GUERRERO CONSULTED. CLINICALLY SHE HAS IMPROVED WITH HIGH DOSE OF STEROIDS. I HAVE ADDED LANTUS SC. DISCUSSED WITH SISTER TODAY.
[2020-06-12] MEDS: METHYLPREDNISOLONE 125 MG INJ IV SCH (17:02)
[2020-06-12] MEDS: RIVAROXABAN 20 MG TABLET PO SCH (17:03)
[2020-06-12] MEDS: ATORVASTATIN 40 MG TAB PO SCH (20:15)
[2020-06-12] MEDS: MELATONIN 3 MG TABLET PO SCH (20:15)
[2020-06-12] MEDS: INSULIN GLARGINE 100 UNITS/ML SQ SCH (20:16)
[2020-06-13 05:10] LABS: Absolute Lymphocytes (CBC) 0.6 K/uL (0.7-4.9); Basophils % 0.1 % (0-1.3); Hematocrit 38.8 % (36.0-45.0); Lymphocytes % 3.6 % (15.3-44.8); MPV 8.8 fL (7.6-11.3); RBC Red Blood Cell Count 4.48 M/uL (3.86-4.86)
[2020-06-13 05:31] LABS: Magnesium 3.2 mg/dL (1.8-2.4); Potassium 4.3 mmol/L (3.5-5.1)
[2020-06-13] MEDS: METHYLPREDNISOLONE 125 MG INJ IV SCH ×2 (06:15→17:03)
[2020-06-13] MEDS: GABAPENTIN 400 MG CAP PO SCH ×3 (08:14→20:11)
[2020-06-13] MEDS: OXYBUTYNIN ER 5 MG TAB PO SCH (08:14)
[2020-06-13] MEDS: MONTELUKAST 10 MG TAB PO SCH (08:14)
[2020-06-13] MEDS: AZITHROMYCIN 250 MG TAB PO SCH (08:15)
[2020-06-13] MEDS: BISOPROLOL/HCTZ 5/6.25MG TAB PO SCH (08:15)
[2020-06-13] MEDS: LOSARTAN POTASSIUM 50 MG TABLET PO SCH (08:15)
[2020-06-13] MEDS: THIAMINE HCL 100 MG TABLET PO SCH (08:15)
[2020-06-13] MEDS: PANTOPRAZOLE 40MG TABLET PO SCH (08:15)
[2020-06-13] MEDS: ASPIRIN EC 81 MG TAB PO SCH (08:16)
[2020-06-13] MEDS: SPIRONOLACTONE 25 MG TABLET PO SCH ×2 (08:16→20:12)
[2020-06-13] MEDS: CEFTRIAXONE/SWI 1gm 1 GM/10 ML SYR IV SCH (08:16)
[2020-06-13] MEDS: INSULIN -REGULAR HUMAN 50 UNIT/0.5 ML ML SQ SCH ×4 (08:16→20:11)
[2020-06-13] MEDS: VITAMIN D 1000 UNIT TAB PO SCH (08:16)
--- NOTE | 2020-06-13 14:25 | P.PN ---
Subjective Date of Service: 06/13/20 Chief Complaint: Respiratory failure shortness of breath Condition stable still requiring high concentrations of oxygen on BiPAP no change Physical Examination - Vital Signs Temperature: 97.5 F Blood Pressure: 152/114 Pulse: 85 Respirations: 22 Pulse Ox (%): 89 Assessment & Plan - Problems (Diagnosis) (1) Pneumonia due to severe acute respiratory syndrome coronavirus Current Visit: Yes Status: Acute Plan: Respiratory failure from orozco virus continue to titrate sat to 85-90% prone position ventilation increase Solu-Medrol to 120 b.i.d. CRP is declining vital signs stable
[2020-06-13] MEDS: RIVAROXABAN 20 MG TABLET PO SCH (17:03)
[2020-06-13] MEDS: INSULIN GLARGINE 100 UNITS/ML SQ SCH ×2 (20:10→22:23)
[2020-06-13] MEDS: MELATONIN 3 MG TABLET PO SCH (20:12)
[2020-06-13] MEDS: ATORVASTATIN 40 MG TAB PO SCH (20:12)
[2020-06-13] MEDS: ACETAMINOPHEN 325 MG TABLET PO PRN (21:07)
--- NOTE | 2020-06-13 21:41 | P.PN ---
Subjective Date of Service: 06/13/20 Chief Complaint: Respiratory failure shortness of breath Subjective: Improving DYSPNEA HAS IMPROVED. SHE IS ABLE TO TALK WITH BIPAP ON. SHE GAVE ME HER SISTER'S NUMBER. SHE HAS NO CHEST PAIN. SHE IS SITTING DOWN AND USING CELL PHONE. SHE IS BREATHING BETTER STILL ON HF OXYGEN AND BIPAP. Physical Examination - Vital Signs Temperature: 98.4 F Blood Pressure: 158/83 Pulse: 73 Respirations: 18 Pulse Ox (%): 96 Assessment And Plan - Current Problems (Diagnosis) (1) Diabetes Current Visit: Yes Status: Acute Plan: SHE IS NOT WATCHING DIET DESPITE ADVISE. SHE REFUSES TO GET ON INSULIN. PROGNOSIS IS GUARDED. RAISE LANTUS TO 40 U SC DAILY. Qualifiers: Diabetes mellitus type: type 2 Diabetes mellitus complication status: without complication (2) Pneumonia due to severe acute respiratory syndrome coronavirus Current Visit: Yes Status: Acute Plan: COVID PNEUMONIA. MODERATE TO SEVERE. STEROIDS IV. XARELTO PO. ZITHROMAX PO. REMDESIVIR, HCQ AND PLASMA EXCHANGE DO NOT HAVE PROVEN BENEFIT YET. DR. GUERRERO CONSULTED. CLINICALLY SHE HAS IMPROVED WITH HIGH DOSE OF STEROIDS. I HAVE ADDED LANTUS SC. DISCUSSED WITH SISTER TODAY. RESUME CURRENT THERAPY DOING GOOD. WILL GO HOME IN A COUPLE OF DAYS HOPEFULLY.
[2020-06-14] MEDS: METHYLPREDNISOLONE 125 MG INJ IV SCH ×2 (05:08→17:13)
[2020-06-14 05:09] LABS: Absolute Lymphocytes (CBC) 0.8 K/uL (0.7-4.9); Basophils % 0.2 % (0-1.3); Hematocrit 38.8 % (36.0-45.0); Lymphocytes % 4.9 % (15.3-44.8); MPV 9.2 fL (7.6-11.3); RBC Red Blood Cell Count 4.52 M/uL (3.86-4.86)
[2020-06-14 05:34] LABS: C-Reactive Protein 73.6 mg/L (<3.00); Potassium 4.2 mmol/L (3.5-5.1)
[2020-06-14 06:14] LABS: Platelet Estimate ADEQ
[2020-06-14 06:15] LABS: Blood Morphology Comment NOT SEEN (NOT SEEN)
--- NOTE | 2020-06-14 08:17 | P.PN ---
Subjective Date of Service: 06/14/20 Chief Complaint: Respiratory failure shortness of breath Condition stable since the still experiencing significant desaturation on high concentrations of oxygen and requiring BiPAP Physical Examination - Vital Signs Temperature: 97 F Blood Pressure: 138/78 Pulse: 71 Respirations: 26 Pulse Ox (%): 92 Assessment & Plan - Problems (Diagnosis) (1) Pneumonia due to severe acute respiratory syndrome coronavirus Current Visit: Yes Status: Acute Plan: R respiratory failure from orozco virus CRP is declining continue with steroids antibiotics and position ventilation blood sugars little elevated
[2020-06-14] MEDS: BISOPROLOL/HCTZ 5/6.25MG TAB PO SCH (08:37)
[2020-06-14] MEDS: ASPIRIN EC 81 MG TAB PO SCH (08:38)
[2020-06-14] MEDS: LOSARTAN POTASSIUM 50 MG TABLET PO SCH (08:38)
[2020-06-14] MEDS: VITAMIN D 1000 UNIT TAB PO SCH (08:38)
[2020-06-14] MEDS: OXYBUTYNIN ER 5 MG TAB PO SCH (08:38)
[2020-06-14] MEDS: AZITHROMYCIN 250 MG TAB PO SCH (08:39)
[2020-06-14] MEDS: GABAPENTIN 400 MG CAP PO SCH ×3 (08:39→19:57)
[2020-06-14] MEDS: CEFTRIAXONE/SWI 1gm 1 GM/10 ML SYR IV SCH (08:39)
[2020-06-14] MEDS: THIAMINE HCL 100 MG TABLET PO SCH (08:39)
[2020-06-14] MEDS: PANTOPRAZOLE 40MG TABLET PO SCH (08:39)
[2020-06-14] MEDS: MONTELUKAST 10 MG TAB PO SCH (08:39)
[2020-06-14] MEDS: SPIRONOLACTONE 25 MG TABLET PO SCH ×2 (08:39→19:57)
[2020-06-14] MEDS: INSULIN -REGULAR HUMAN 50 UNIT/0.5 ML ML SQ SCH ×4 (08:51→20:34)
--- NOTE | 2020-06-14 13:13 | P.PN ---
Subjective Date of Service: 06/14/20 Chief Complaint: Respiratory failure shortness of breath Subjective: Improving DYSPNEA HAS IMPROVED. SHE IS ABLE TO TALK WITH BIPAP ON. SHE GAVE ME HER SISTER'S NUMBER. SHE HAS NO CHEST PAIN. SHE IS SITTING DOWN AND USING CELL PHONE. SHE IS BREATHING BETTER STILL ON HF OXYGEN AND BIPAP. SHE IS ABLE TO TALK WELL. WEARS BIPAP AND HF OXYGEN. Physical Examination - Vital Signs Temperature: 97 F Blood Pressure: 152/77 Pulse: 71 Respirations: 26 Pulse Ox (%): 92 - Physical Exam General: Moderate distress, Obese Respiratory: Diminished Cardiovascular: Normal S1 S2 Musculoskeletal: No tenderness Integumentary: No rashes Neurological: Normal speech, Normal tone, Normal affect Lymphatics: No axilla or inguinal lymphadenopathy - Studies Medications List Reviewed: Yes Assessment And Plan - Current Problems (Diagnosis) (1) Diabetes Current Visit: Yes Status: Acute Plan: SHE IS NOT WATCHING DIET DESPITE ADVISE. SHE REFUSES TO GET ON INSULIN. PROGNOSIS IS GUARDED. RAISE LANTUS TO 40 U SC DAILY. Qualifiers: Diabetes mellitus type: type 2 Diabetes mellitus complication status: without complication (2) Pneumonia due to severe acute respiratory syndrome coronavirus Current Visit: Yes Status: Acute Plan: COVID PNEUMONIA. MODERATE TO SEVERE. STEROIDS IV. XARELTO PO. ZITHROMAX PO. REMDESIVIR, HCQ AND PLASMA EXCHANGE DO NOT HAVE PROVEN BENEFIT YET. DR. GUERRERO CONSULTED. CLINICALLY SHE HAS IMPROVED WITH HIGH DOSE OF STEROIDS. I HAVE ADDED LANTUS SC. DISCUSSED WITH SISTER TODAY. RESUME CURRENT THERAPY DOING GOOD. WILL GO HOME IN A COUPLE OF DAYS HOPEFULLY. SAME RX. GRADUAL REDUCTION IN CRP. IMPROVED CLINICAL CONDITION.
[2020-06-14] MEDS: RIVAROXABAN 20 MG TABLET PO SCH (17:13)
[2020-06-14] MEDS: MELATONIN 3 MG TABLET PO SCH (19:57)
[2020-06-14] MEDS: ATORVASTATIN 40 MG TAB PO SCH (19:57)
[2020-06-14] MEDS: INSULIN GLARGINE 100 UNITS/ML SQ SCH (20:33)
[2020-06-15] MEDS: METHYLPREDNISOLONE 125 MG INJ IV SCH ×2 (05:11→12:04)
[2020-06-15 07:32] LABS: Absolute Lymphocytes (CBC) 0.8 K/uL (0.7-4.9); Basophils % 0.3 % (0-1.3); Hematocrit 39.2 % (36.0-45.0); MPV 8.9 fL (7.6-11.3); RBC Red Blood Cell Count 4.58 M/uL (3.86-4.86)
[2020-06-15] MEDS: INSULIN -REGULAR HUMAN 50 UNIT/0.5 ML ML SQ SCH ×4 (07:43→21:22)
[2020-06-15] MEDS: LOSARTAN POTASSIUM 50 MG TABLET PO SCH (08:01)
[2020-06-15] MEDS: ASPIRIN EC 81 MG TAB PO SCH (08:01)
[2020-06-15] MEDS: SPIRONOLACTONE 25 MG TABLET PO SCH ×2 (08:02→21:08)
[2020-06-15] MEDS: THIAMINE HCL 100 MG TABLET PO SCH (08:02)
[2020-06-15] MEDS: GABAPENTIN 400 MG CAP PO SCH ×3 (08:02→21:18)
[2020-06-15] MEDS: VITAMIN D 1000 UNIT TAB PO SCH (08:02)
[2020-06-15] MEDS: PANTOPRAZOLE 40MG TABLET PO SCH (08:03)
[2020-06-15] MEDS: MONTELUKAST 10 MG TAB PO SCH (08:03)
[2020-06-15] MEDS: CEFTRIAXONE/SWI 1gm 1 GM/10 ML SYR IV SCH (08:03)
[2020-06-15] MEDS: BISOPROLOL/HCTZ 5/6.25MG TAB PO SCH (08:04)
[2020-06-15] MEDS: OXYBUTYNIN ER 5 MG TAB PO SCH (08:05)
[2020-06-15] MEDS: AZITHROMYCIN 250 MG TAB PO SCH (08:05)
[2020-06-15 08:06] LABS: BUN Blood Urea Nitrogen 30 mg/dL (7-18); Bicarbonate 27 mmol/L (21-32); Glucose Level 211 mg/dL (74-106); Potassium 4.3 mmol/L (3.5-5.1); Sodium Level 144 mmol/L (136-145)
--- NOTE | 2020-06-15 11:29 | P.PN ---
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 the time of my evaluation she was alert oriented responsive no respiratory distress sats over 95% Review of Systems General: Weakness Respiratory: Shortness of Breath Physical Examination - Vital Signs Temperature: 98 F Blood Pressure: 148/88 Pulse: 67 Respirations: 23 Pulse Ox (%): 94 - Physical Exam General: Alert, In no apparent distress, Oriented x3 - Studies Medications List Reviewed: Yes Assessment & Plan - Problems (Diagnosis) (1) Pneumonia due to severe acute respiratory syndrome coronavirus Current Visit: Yes Status: Acute Plan: Patient admitted with respiratory failure from orozco virus is she is doing much better a reduced dose of Solu-Medrol to 80 mg twice a day titrate sat to 85-90% setup for home oxygen Dc Rocephin continue with Zithromax still requiring high concentrations of oxygen titrate sat 85-90%
[2020-06-15] MEDS: RIVAROXABAN 20 MG TABLET PO SCH (17:16)
--- NOTE | 2020-06-15 19:27 | P.PN ---
Subjective Date of Service: 06/15/20 Chief Complaint: Respiratory failure from orozco virus Subjective: Improving IMPROVED WELL. SHE IS STILL DYSPNEIC BUT LOT BETTER. HYPOXIA HAS IMPROVED, STILL NEEDS HFO AND OR BIPAP. Review of Systems 10-point ROS is otherwise unremarkable General: Weakness, Malaise Respiratory: Shortness of Breath, As per HPI Physical Examination - Vital Signs Temperature: 98.2 F Blood Pressure: 149/95 Pulse: 81 Respirations: 23 Pulse Ox (%): 88 - Physical Exam General: Mild distress, Obese HEENT: Atraumatic, PERRLA, EOMI Neck: Supple, JVD not distended Respiratory: Clear to auscultation bilaterally, Normal air movement Cardiovascular: Regular rate/rhythm, Normal S1 S2 Gastrointestinal: Normal bowel sounds, No tenderness Musculoskeletal: No tenderness Integumentary: No rashes Neurological: Normal speech, Normal tone, Normal affect Lymphatics: No axilla or inguinal lymphadenopathy - Studies Microbiology Data (last 24 hrs): 06/10/20 17:00 Blood - Blood Aerobic Blood Culture - Final No growth in 5 days. 06/10/20 17:00 Blood - Blood Anaerobic Blood Culture - Final No growth in 5 days. 06/10/20 17:10 Blood - Blood Aerobic Blood Culture - Final No growth in 5 days. 06/10/20 17:10 Blood - Blood Anaerobic Blood Culture - Final No growth in 5 days. Medications List Reviewed: Yes Assessment And Plan - Current Problems (Diagnosis) (1) Diabetes Current Visit: Yes Status: Acute Plan: SHE IS NOT WATCHING DIET DESPITE ADVISE. SHE REFUSES TO GET ON INSULIN. PROGNOSIS IS GUARDED. RAISE LANTUS TO 40 U SC DAILY. Qualifiers: Diabetes mellitus type: type 2 Diabetes mellitus complication status: without complication (2) Pneumonia due to severe acute respiratory syndrome coronavirus Current Visit: Yes Status: Acute Plan: COVID PNEUMONIA. MODERATE TO SEVERE. STEROIDS IV. XARELTO PO. ZITHROMAX PO. CLINICALLY IMPROVING. CRP IS GOING DOWN IN NUMBER STABLE.
[2020-06-15] MEDS: MELATONIN 3 MG TABLET PO SCH (21:17)
[2020-06-15] MEDS: ATORVASTATIN 40 MG TAB PO SCH (21:18)
[2020-06-15] MEDS: INSULIN GLARGINE 100 UNITS/ML SQ SCH (21:21)
[2020-06-16] MEDS: RIVAROXABAN 20 MG TABLET PO SCH (05:35)
[2020-06-16 06:00] LABS: Absolute Lymphocytes (CBC) 1.1 K/uL (0.7-4.9); Basophils % 0.2 % (0-1.3); Hematocrit 40.4 % (36.0-45.0); Lymphocytes % 8.4 % (15.3-44.8); MPV 9.1 fL (7.6-11.3)
[2020-06-16 06:15] LABS: BUN Blood Urea Nitrogen 26 mg/dL (7-18); Bicarbonate 26 mmol/L (21-32); Glucose Level 158 mg/dL (74-106); Potassium 3.9 mmol/L (3.5-5.1); Sodium Level 146 mmol/L (136-145)
[2020-06-16] MEDS: INSULIN -REGULAR HUMAN 50 UNIT/0.5 ML ML SQ SCH ×4 (07:30→21:46)
[2020-06-16] MEDS: ASPIRIN EC 81 MG TAB PO SCH (08:47)
[2020-06-16] MEDS: MONTELUKAST 10 MG TAB PO SCH (08:47)
[2020-06-16] MEDS: THIAMINE HCL 100 MG TABLET PO SCH (08:47)
[2020-06-16] MEDS: LOSARTAN POTASSIUM 50 MG TABLET PO SCH (08:47)
[2020-06-16] MEDS: PANTOPRAZOLE 40MG TABLET PO SCH (08:47)
[2020-06-16] MEDS: VITAMIN D 1000 UNIT TAB PO SCH (08:48)
[2020-06-16] MEDS: OXYBUTYNIN ER 5 MG TAB PO SCH (08:48)
[2020-06-16] MEDS: AZITHROMYCIN 250 MG TAB PO SCH (08:48)
[2020-06-16] MEDS: SPIRONOLACTONE 25 MG TABLET PO SCH (08:48)
[2020-06-16] MEDS: BISOPROLOL/HCTZ 5/6.25MG TAB PO SCH (08:48)
[2020-06-16] MEDS: GABAPENTIN 400 MG CAP PO SCH ×3 (08:49→21:24)
--- NOTE | 2020-06-16 10:11 | RAD REPORT ---
EXAM DESCRIPTION: [facility]06/16/2020 10:02 am CLINICAL HISTORY: Cough COMPARISON: none FINDINGS: Mild improvement in right and no significant change left pulmonary opacities Heart is normal size IMPRESSION: Parietal improvement in the right no significant change the left moderate pneumonia
--- NOTE | 2020-06-16 10:15 | P.PN ---
Subjective Date of Service: 06/16/20 Chief Complaint: Respiratory failure from orozco virus Subjective: Improving IMPROVED WELL. SHE IS STILL DYSPNEIC BUT LOT BETTER. HYPOXIA HAS IMPROVED, STILL NEEDS HFO AND OR BIPAP. SHE IS IMPROVING DAILY AND FEELING BETTER. Physical Examination - Vital Signs Temperature: 97.8 F Blood Pressure: 124/84 Pulse: 69 Respirations: 22 Pulse Ox (%): 92 - Physical Exam General: Alert, Oriented x3, Mild distress, Moderate distress, Obese - Studies Microbiology Data (last 24 hrs): 06/10/20 17:00 Blood - Blood Aerobic Blood Culture - Final No growth in 5 days. 06/10/20 17:00 Blood - Blood Anaerobic Blood Culture - Final No growth in 5 days. 06/10/20 17:10 Blood - Blood Aerobic Blood Culture - Final No growth in 5 days. 06/10/20 17:10 Blood - Blood Anaerobic Blood Culture - Final No growth in 5 days. Medications List Reviewed: Yes Assessment And Plan - Current Problems (Diagnosis) (1) Diabetes Current Visit: Yes Status: Acute Plan: SHE IS NOT WATCHING DIET DESPITE ADVISE. SHE REFUSES TO GET ON INSULIN. PROGNOSIS IS GUARDED. RAISE LANTUS TO 40 U SC DAILY. Qualifiers: Diabetes mellitus type: type 2 Diabetes mellitus complication status: without complication (2) Pneumonia due to severe acute respiratory syndrome coronavirus Current Visit: Yes Status: Acute Plan: COVID PNEUMONIA. MODERATE TO SEVERE. STEROIDS IV. XARELTO PO. ZITHROMAX PO. CLINICALLY IMPROVING. CRP IS GOING DOWN IN NUMBER STABLE. STEROIDS FU CXR. OXYGEN AND BIPAP.
--- NOTE | 2020-06-16 11:35 | P.PN ---
Subjective Date of Service: 06/16/20 (TV) Chief Complaint: Respiratory failure from orozco virus Improving. Requiring high concentration of O2. No distress Review of Systems Respiratory: Shortness of Breath Physical Examination - Vital Signs Temperature: 97.8 F Blood Pressure: 124/84 Pulse: 69 Respirations: 22 Pulse Ox (%): 92 - Studies Microbiology Data (last 24 hrs): 06/10/20 17:00 Blood - Blood Aerobic Blood Culture - Final No growth in 5 days. 06/10/20 17:00 Blood - Blood Anaerobic Blood Culture - Final No growth in 5 days. 06/10/20 17:10 Blood - Blood Aerobic Blood Culture - Final No growth in 5 days. 06/10/20 17:10 Blood - Blood Anaerobic Blood Culture - Final No growth in 5 days. Medications List Reviewed: Yes Assessment & Plan - Problems (Diagnosis) (1) Pneumonia due to severe acute respiratory syndrome coronavirus Current Visit: Yes Status: Acute Plan: Improving gradually. Titrate o2 sat of 88% ABG's.CRP less than 50 CXRy improvment.Home o2 ordered. Discharge Plan: Home Plan to discharge in: 48 Hours
[2020-06-16] MEDS: METHYLPREDNISOLONE 125 MG INJ IV SCH ×2 (12:13)
[2020-06-16 12:40] LABS: Arterial Blood Carboxyhemoglob 0.9 % (0-1.5); Blood Gas Oxyhemoglobin 82.7 % (94-97); Blood O2 Saturation 84.4 % (92-98.5)
[2020-06-16] MEDS ORDERED: INSULIN GLARGINE 100 UNITS/ML SQ SCH (21:00)
[2020-06-16] MEDS: ATORVASTATIN 40 MG TAB PO SCH (21:23)
[2020-06-16] MEDS: MELATONIN 3 MG TABLET PO SCH (21:26)
[2020-06-17 05:16] LABS: Basophils % 0.2 % (0-1.3); Hematocrit 40.4 % (36.0-45.0); Lymphocytes % 7.5 % (15.3-44.8); MPV 9.1 fL (7.6-11.3); RBC Red Blood Cell Count 4.64 M/uL (3.86-4.86)
[2020-06-17 05:36] LABS: BUN Blood Urea Nitrogen 26 mg/dL (7-18); Bicarbonate 26 mmol/L (21-32); Glucose Level 159 mg/dL (74-106); Potassium 4.1 mmol/L (3.5-5.1); Sodium Level 143 mmol/L (136-145)
[2020-06-17] MEDS: INSULIN -REGULAR HUMAN 50 UNIT/0.5 ML ML SQ SCH ×4 (07:30→21:20)
[2020-06-17] MEDS: LOSARTAN POTASSIUM 50 MG TABLET PO SCH (08:59)
[2020-06-17] MEDS: THIAMINE HCL 100 MG TABLET PO SCH (09:02)
[2020-06-17] MEDS: ASPIRIN EC 81 MG TAB PO SCH (09:02)
[2020-06-17] MEDS: SPIRONOLACTONE 25 MG TABLET PO SCH (09:02)
[2020-06-17] MEDS: PANTOPRAZOLE 40MG TABLET PO SCH (09:02)
[2020-06-17] MEDS: VITAMIN D 1000 UNIT TAB PO SCH (09:02)
[2020-06-17] MEDS: AZITHROMYCIN 250 MG TAB PO SCH (09:03)
[2020-06-17] MEDS: OXYBUTYNIN ER 5 MG TAB PO SCH (09:03)
[2020-06-17] MEDS: GABAPENTIN 400 MG CAP PO SCH ×3 (09:03→20:29)
[2020-06-17] MEDS: BISOPROLOL/HCTZ 5/6.25MG TAB PO SCH (09:03)
[2020-06-17] MEDS: MONTELUKAST 10 MG TAB PO SCH (09:36)
[2020-06-17] MEDS: METHYLPREDNISOLONE 125 MG INJ IV SCH ×3 (11:55→23:49)
[2020-06-17] MEDS: RIVAROXABAN 20 MG TABLET PO SCH (16:34)
--- NOTE | 2020-06-17 16:46 | P.PN ---
Subjective Date of Service: 06/17/20 Chief Complaint: Respiratory failure from orozco virus Subjective: Improving IMPROVED WELL. SHE IS STILL DYSPNEIC BUT LOT BETTER. HYPOXIA HAS IMPROVED, STILL NEEDS HFO AND OR BIPAP. SHE IS IMPROVING DAILY AND FEELING BETTER. THIS IS A TELEMEDICINE VISIT. SHE IS A LOT BETTER. STILL VERY HYPOXIC BUT BETTER. SHE HAS LEARNED HOW TO DO INSULIN INJECTIONS. Review of Systems 10-point ROS is otherwise unremarkable Physical Examination - Vital Signs Temperature: 97.6 F Blood Pressure: 107/70 Pulse: 86 Respirations: 19 Pulse Ox (%): 92 - Physical Exam General: Moderate distress, Obese HEENT: Atraumatic, PERRLA, EOMI Neck: Supple, JVD not distended Respiratory: Clear to auscultation bilaterally, Normal air movement Cardiovascular: Regular rate/rhythm, Normal S1 S2 Gastrointestinal: Normal bowel sounds, No tenderness Musculoskeletal: No tenderness Integumentary: No rashes Neurological: Normal speech, Normal tone, Normal affect Lymphatics: No axilla or inguinal lymphadenopathy - Studies Medications List Reviewed: Yes Assessment And Plan - Current Problems (Diagnosis) (1) Diabetes Current Visit: Yes Status: Acute Plan: SHE IS NOT WATCHING DIET DESPITE ADVISE. SHE REFUSES TO GET ON INSULIN. PROGNOSIS IS GUARDED. RAISE LANTUS TO 40 U SC DAILY. Qualifiers: Diabetes mellitus type: type 2 Diabetes mellitus complication status: without complication (2) Pneumonia due to severe acute respiratory syndrome coronavirus Current Visit: Yes Status: Acute Plan: COVID PNEUMONIA. MODERATE TO SEVERE. STEROIDS IV. XARELTO PO. ZITHROMAX PO. CLINICALLY IMPROVING. CRP IS GOING DOWN IN NUMBER STABLE. STEROIDS FU CXR. OXYGEN AND BIPAP. IMPROVED CLINICALLY. CRP, OXYGENATION IMPROVED.
[2020-06-17] MEDS: MELATONIN 3 MG TABLET PO SCH (20:29)
[2020-06-17] MEDS: ATORVASTATIN 40 MG TAB PO SCH (20:29)
[2020-06-17] MEDS: INSULIN GLARGINE 100 UNITS/ML SQ SCH (21:20)
[2020-06-18 05:16] LABS: Absolute Lymphocytes (CBC) 0.5 K/uL (0.7-4.9); Basophils % 0.1 % (0-1.3); Hematocrit 37.5 % (36.0-45.0); Lymphocytes % 4.1 % (15.3-44.8); MPV 9.2 fL (7.6-11.3); RBC Red Blood Cell Count 4.32 M/uL (3.86-4.86)
[2020-06-18 05:32] LABS: Potassium 4.4 mmol/L (3.5-5.1)
[2020-06-18 05:59] LABS: Blood Morphology Comment NOT SEEN (NOT SEEN); Platelet Estimate ADEQ
[2020-06-18] MEDS: THIAMINE HCL 100 MG TABLET PO SCH (08:33)
[2020-06-18] MEDS: METHYLPREDNISOLONE 125 MG INJ IV SCH ×2 (08:33→20:10)
[2020-06-18] MEDS: ASPIRIN EC 81 MG TAB PO SCH (08:33)
[2020-06-18] MEDS: LOSARTAN POTASSIUM 50 MG TABLET PO SCH (08:33)
[2020-06-18] MEDS: MONTELUKAST 10 MG TAB PO SCH (08:34)
[2020-06-18] MEDS: GABAPENTIN 400 MG CAP PO SCH ×3 (08:34→20:11)
[2020-06-18] MEDS: SPIRONOLACTONE 25 MG TABLET PO SCH (08:34)
[2020-06-18] MEDS: INSULIN -REGULAR HUMAN 50 UNIT/0.5 ML ML SQ SCH ×5 (08:34→20:28)
[2020-06-18] MEDS: PANTOPRAZOLE 40MG TABLET PO SCH (08:34)
[2020-06-18] MEDS: AZITHROMYCIN 250 MG TAB PO SCH (08:34)
[2020-06-18] MEDS: VITAMIN D 1000 UNIT TAB PO SCH (08:34)
[2020-06-18] MEDS: OXYBUTYNIN ER 5 MG TAB PO SCH (08:35)
[2020-06-18] MEDS: BISOPROLOL/HCTZ 5/6.25MG TAB PO SCH (08:35)
[2020-06-18 09:41] LABS: Albumin 2.3 g/dL (3.4-5.0); Bilirubin Direct 0.1 mg/dL (0-0.2); Bilirubin Total 0.3 mg/dL (0.2-1.0); Protein, Total 7.2 g/dL (6.4-8.2)
--- NOTE | 2020-06-18 12:36 | P.PN ---
Subjective Date of Service: 06/18/20 Chief Complaint: Respiratory failure from orozco virus Patient is steadily improving feels better still requiring high concentrations of oxygen redesmir Physical Examination - Vital Signs Temperature: 97.0 F Blood Pressure: 129/79 Pulse: 73 Respirations: 14 Pulse Ox (%): 95 - Studies Medications List Reviewed: Yes Assessment & Plan - Problems (Diagnosis) (1) Pneumonia due to severe acute respiratory syndrome coronavirus Current Visit: Yes Status: Acute Plan: Patient is gradually improving continue to titrate oxygen down patient refuse redesmir patient's CRP increased again steroid dose increased white count is only mildly elevated
[2020-06-18] MEDS: RIVAROXABAN 20 MG TABLET PO SCH (17:41)
[2020-06-18] MEDS: MELATONIN 3 MG TABLET PO SCH (20:11)
[2020-06-18] MEDS: ATORVASTATIN 40 MG TAB PO SCH (20:11)
[2020-06-18] MEDS: INSULIN GLARGINE 100 UNITS/ML SQ SCH (20:29)
--- NOTE | 2020-06-18 21:34 | P.PN ---
Subjective Date of Service: 06/18/20 Chief Complaint: Respiratory failure from orozco virus Subjective: No new changes IMPROVED WELL. SHE IS STILL DYSPNEIC BUT LOT BETTER. HYPOXIA HAS IMPROVED, STILL NEEDS HFO AND OR BIPAP. SHE IS IMPROVING DAILY AND FEELING BETTER. THIS IS A TELEMEDICINE VISIT. SHE IS A LOT BETTER. STILL VERY HYPOXIC BUT BETTER. SHE HAS LEARNED HOW TO DO INSULIN INJECTIONS. FEELS THE SAME. Physical Examination - Vital Signs Temperature: 97.8 F Blood Pressure: 138/76 Pulse: 78 Respirations: 14 Pulse Ox (%): 85 - Physical Exam General: Alert, Mild distress, Moderate distress, Obese - Studies Medications List Reviewed: Yes Assessment And Plan - Current Problems (Diagnosis) (1) Diabetes Current Visit: Yes Status: Acute Plan: SHE IS NOT WATCHING DIET DESPITE ADVISE. SHE REFUSES TO GET ON INSULIN. PROGNOSIS IS GUARDED. RAISE LANTUS TO 40 U SC DAILY. Qualifiers: Diabetes mellitus type: type 2 Diabetes mellitus complication status: without complication (2) Pneumonia due to severe acute respiratory syndrome coronavirus Current Visit: Yes Status: Acute Plan: COVID PNEUMONIA. MODERATE TO SEVERE. STEROIDS IV. XARELTO PO. ZITHROMAX PO. CLINICALLY IMPROVING. CRP IS GOING DOWN IN NUMBER STABLE. STEROIDS FU CXR. OXYGEN AND BIPAP. IMPROVED CLINICALLY. CRP, OXYGENATION IMPROVED. REMDESIVIR STARTED CRP INCREASED WITH LOWER DOSE OF STEROIDS. DR. ALMONTE CALLED.
[2020-06-19 06:03] LABS: Potassium 4.3 mmol/L (3.5-5.1)
[2020-06-19 06:04] LABS: Absolute Lymphocytes (CBC) 0.4 K/uL (0.7-4.9); Basophils % 0.5 % (0-1.3); Hematocrit 37.8 % (36.0-45.0); Lymphocytes % 2.1 % (15.3-44.8); MPV 9.8 fL (7.6-11.3); RBC Red Blood Cell Count 4.38 M/uL (3.86-4.86)
[2020-06-19] MEDS: INSULIN -REGULAR HUMAN 50 UNIT/0.5 ML ML SQ SCH ×5 (07:44→20:32)
[2020-06-19 08:22] LABS: Blood Morphology Comment NOT SEEN (NOT SEEN); Platelet Estimate ADEQ
[2020-06-19] MEDS: SPIRONOLACTONE 25 MG TABLET PO SCH (09:08)
[2020-06-19] MEDS: LOSARTAN POTASSIUM 50 MG TABLET PO SCH (09:09)
[2020-06-19] MEDS: ASPIRIN EC 81 MG TAB PO SCH (09:09)
[2020-06-19] MEDS: OXYBUTYNIN ER 5 MG TAB PO SCH (09:10)
[2020-06-19] MEDS: GABAPENTIN 400 MG CAP PO SCH ×3 (09:11→20:31)
[2020-06-19] MEDS: MONTELUKAST 10 MG TAB PO SCH (09:12)
[2020-06-19] MEDS: PANTOPRAZOLE 40MG TABLET PO SCH (09:12)
[2020-06-19] MEDS: VITAMIN D 1000 UNIT TAB PO SCH (09:13)
[2020-06-19] MEDS: METHYLPREDNISOLONE 125 MG INJ IV SCH ×2 (09:13→20:32)
[2020-06-19] MEDS: THIAMINE HCL 100 MG TABLET PO SCH (09:13)
[2020-06-19] MEDS: BISOPROLOL/HCTZ 5/6.25MG TAB PO SCH (09:14)
--- NOTE | 2020-06-19 09:30 | P.PN ---
Subjective Date of Service: 06/19/20 Chief Complaint: Respiratory failure from orozco virus IMPROVED WELL. SHE IS STILL DYSPNEIC BUT LOT BETTER. HYPOXIA HAS IMPROVED, STILL NEEDS HFO AND OR BIPAP. SHE IS IMPROVING DAILY AND FEELING BETTER. THIS IS A TELEMEDICINE VISIT. SHE IS A LOT BETTER. STILL VERY HYPOXIC BUT BETTER. SHE HAS LEARNED HOW TO DO INSULIN INJECTIONS. FEELS THE SAME. Physical Examination - Vital Signs Temperature: 98.7 F Blood Pressure: 157/81 Pulse: 89 Respirations: 25 Pulse Ox (%): 92 - Studies Medications List Reviewed: Yes Assessment And Plan - Current Problems (Diagnosis) (1) Diabetes Current Visit: Yes Status: Acute Plan: SHE IS NOT WATCHING DIET DESPITE ADVISE. SHE REFUSES TO GET ON INSULIN. PROGNOSIS IS GUARDED. RAISE LANTUS TO 40 U SC DAILY. Qualifiers: Diabetes mellitus type: type 2 Diabetes mellitus complication status: without complication (2) Pneumonia due to severe acute respiratory syndrome coronavirus Current Visit: Yes Status: Acute Plan: COVID PNEUMONIA. MODERATE TO SEVERE. STEROIDS IV. XARELTO PO. ZITHROMAX PO. CLINICALLY IMPROVING. CRP IS GOING DOWN IN NUMBER STABLE. STEROIDS FU CXR. OXYGEN AND BIPAP. IMPROVED CLINICALLY. CRP, OXYGENATION IMPROVED. REMDESIVIR STARTED CRP INCREASED WITH LOWER DOSE OF STEROIDS. DR. ALMONTE CALLED.
[2020-06-19] MEDS ORDERED: ENSURE HIGH PROTEIN 237 ML CAN PO PRN (09:43)
--- NOTE | 2020-06-19 12:01 | P.PN ---
Subjective Date of Service: 06/19/20 Chief Complaint: Respiratory failure from orozco virus O patient is subjectively feeling a lot better in requiring high concentrations of oxygen in the morning but will try and taper it down no other complaints Review of Systems Respiratory: Shortness of Breath Physical Examination - Vital Signs Temperature: 98.7 F Blood Pressure: 157/81 Pulse: 89 Respirations: 25 Pulse Ox (%): 92 - Studies Medications List Reviewed: Yes Assessment & Plan - Problems (Diagnosis) (1) Pneumonia due to severe acute respiratory syndrome coronavirus Current Visit: Yes Status: Acute Plan: Patient is doing much better. Will try stay for oxygen down monitor CRP levels blood pressure elevated
[2020-06-19] MEDS: RIVAROXABAN 20 MG TABLET PO SCH (16:43)
[2020-06-19] MEDS: MELATONIN 3 MG TABLET PO SCH (20:31)
[2020-06-19] MEDS: ATORVASTATIN 40 MG TAB PO SCH (20:31)
[2020-06-19] MEDS: INSULIN GLARGINE 100 UNITS/ML SQ SCH (20:31)
[2020-06-19] MEDS: PROMOD 30 ML DOSE PO SCH ×2 (20:33→21:00)
[2020-06-20] MEDS: ACETAMINOPHEN 325 MG TABLET PO PRN ×2 (02:18→20:39)
[2020-06-20] MEDS: INSULIN -REGULAR HUMAN 50 UNIT/0.5 ML ML SQ SCH ×4 (07:30→21:14)
[2020-06-20] MEDS: BISOPROLOL/HCTZ 5/6.25MG TAB PO SCH (08:23)
[2020-06-20] MEDS: ASPIRIN EC 81 MG TAB PO SCH (08:25)
[2020-06-20] MEDS: VITAMIN D 1000 UNIT TAB PO SCH (08:25)
[2020-06-20] MEDS: THIAMINE HCL 100 MG TABLET PO SCH (08:25)
[2020-06-20] MEDS: SPIRONOLACTONE 25 MG TABLET PO SCH (08:25)
[2020-06-20] MEDS: GABAPENTIN 400 MG CAP PO SCH ×3 (08:26→20:05)
[2020-06-20] MEDS: PANTOPRAZOLE 40MG TABLET PO SCH (08:26)
[2020-06-20] MEDS: METHYLPREDNISOLONE 125 MG INJ IV SCH ×2 (08:26→20:05)
[2020-06-20] MEDS: OXYBUTYNIN ER 5 MG TAB PO SCH (08:26)
[2020-06-20] MEDS: MONTELUKAST 10 MG TAB PO SCH (08:26)
[2020-06-20] MEDS: LOSARTAN POTASSIUM 50 MG TABLET PO SCH (08:26)
[2020-06-20 08:49] LABS: Arterial Blood Carboxyhemoglob 0.9 % (0-1.5); Blood Gas Oxyhemoglobin 83.8 % (94-97); Blood O2 Saturation 85.6 % (92-98.5)
[2020-06-20] MEDS: PROMOD 30 ML DOSE PO SCH ×2 (09:00→20:26)
--- NOTE | 2020-06-20 09:00 | RAD REPORT ---
EXAM DESCRIPTION: RAD - Chest Single View - 06/20/2020 8:47 am CLINICAL HISTORY: COVID pneumonia Chest pain. COMPARISON: Chest Single View dated 06/16/2020; Chest Single View dated 06/10/2020; Chest Pa And Lat ( 2 Views) dated 09/15/2018; Chest Single View dated 03/31/2017 FINDINGS: Portable technique limits examination quality. Bilateral pulmonary opacities appear fractionally improved since 06/16/2020 study. The heart is fady l in size. No displaced fractures. IMPRESSION: Fractional improvement in lung aeration suspected since comparative study.
--- NOTE | 2020-06-20 12:04 | P.PN ---
Subjective Date of Service: 06/20/20 Chief Complaint: Respiratory failure from orozco virus Patient is doing well she denies any shortness of breath although she is very hypoxic requiring over 90% of FiO2 no new complaints Review of Systems General: Weakness Respiratory: Shortness of Breath Physical Examination - Vital Signs Temperature: 98.2 F Blood Pressure: 132/82 Pulse: 64 Respirations: 13 Pulse Ox (%): 88 - Physical Exam General: Alert, Oriented x3 - Studies Medications List Reviewed: Yes Assessment & Plan - Problems (Diagnosis) (1) Pneumonia due to severe acute respiratory syndrome coronavirus Current Visit: Yes Status: Acute Plan: Respiratory failure from coronal virus still continues to be very hypoxic CRP is declining patient has significant ARDS on the chest x-ray with marginal improvement reduce dose of Solu-Medrol to 80 IV b.i.d. CRP is less than 50 pat ient to use BiPAP and p.r.n. high flow oxygen blood gases shows significant hypoxemia
[2020-06-20] MEDS: RIVAROXABAN 20 MG TABLET PO SCH (16:48)
[2020-06-20] MEDS: INSULIN GLARGINE 100 UNITS/ML SQ SCH (20:04)
[2020-06-20] MEDS: MELATONIN 3 MG TABLET PO SCH (20:05)
[2020-06-20] MEDS: ATORVASTATIN 40 MG TAB PO SCH (20:05)
--- NOTE | 2020-06-20 21:27 | P.PN ---
Subjective Date of Service: 06/20/20 Chief Complaint: Respiratory failure from orozco virus Subjective: Improving IMPROVED WELL. SHE IS STILL DYSPNEIC BUT LOT BETTER. HYPOXIA HAS IMPROVED, STILL NEEDS HFO AND OR BIPAP. SHE IS IMPROVING DAILY AND FEELING BETTER. THIS IS A TELEMEDICINE VISIT. SHE IS A LOT BETTER. STILL VERY HYPOXIC BUT BETTER. SHE HAS LEARNED HOW TO DO INSULIN INJECTIONS. FEELS THE SAME. STABLE, STILL HYPOXIC AND SLOW IMPROVEMENT Review of Systems 10-point ROS is otherwise unremarkable General: Weakness, Malaise Physical Examination - Vital Signs Temperature: 97.7 F Blood Pressure: 145/99 Pulse: 77 Respirations: 20 Pulse Ox (%): 94 - Physical Exam General: Mild distress, Moderate distress, Obese HEENT: Atraumatic, PERRLA, EOMI Neck: Supple, JVD not distended Cardiovascular: Regular rate/rhythm, Normal S1 S2 Gastrointestinal: Normal bowel sounds, No tenderness Musculoskeletal: No tenderness Integumentary: No rashes Neurological: Normal speech, Normal tone, Normal affect Lymphatics: No axilla or inguinal lymphadenopathy - Studies Medications List Reviewed: Yes Assessment And Plan - Current Problems (Diagnosis) (1) Diabetes Current Visit: Yes Status: Acute Plan: SHE IS NOT WATCHING DIET DESPITE ADVISE. SHE REFUSES TO GET ON INSULIN. PROGNOSIS IS GUARDED. RAISE LANTUS TO 40 U SC DAILY. Qualifiers: Diabetes mellitus type: type 2 Diabetes mellitus complication status: without complication (2) Pneumonia due to severe acute respiratory syndrome coronavirus Current Visit: Yes Status: Acute Plan: COVID PNEUMONIA. MODERATE TO SEVERE. STEROIDS IV. XARELTO PO. ZITHROMAX PO. CLINICALLY IMPROVING. CRP IS GOING DOWN IN NUMBER STABLE. STEROIDS FU CXR. OXYGEN AND BIPAP. IMPROVED CLINICALLY. CRP, OXYGENATION IMPROVED. REMDESIVIR STARTED CRP INCREASED WITH LOWER DOSE OF STEROIDS. DR. ALMONTE CALLED. STEROIDS ARE REDUCED NOW. SHE NEVER TOOK REMDESIVIR SHE DID NOT WANT TO.
[2020-06-21 05:07] LABS: Absolute Lymphocytes (CBC) 0.8 K/uL (0.7-4.9); Basophils % 0.2 % (0-1.3); Hematocrit 39.2 % (36.0-45.0); Lymphocytes % 5.4 % (15.3-44.8); MPV 9.9 fL (7.6-11.3); RBC Red Blood Cell Count 4.54 M/uL (3.86-4.86)
[2020-06-21 05:16] LABS: BUN Blood Urea Nitrogen 28 mg/dL (7-18); Bicarbonate 29 mmol/L (21-32); Glucose Level 222 mg/dL (74-106); Magnesium 2.5 mg/dL (1.8-2.4); Potassium 4.3 mmol/L (3.5-5.1); Sodium Level 140 mmol/L (136-145)
--- NOTE | 2020-06-21 07:09 | RAD REPORT ---
EXAM DESCRIPTION: RAD - Chest Single View - 06/21/2020 5:40 am CLINICAL HISTORY: COVID pneumonia COMPARISON: June 20 TECHNIQUE: AP portable chest image was obtained 06/21/2020 5:40 am . FINDINGS: Bilateral pneumonia changes are present similar or only fractionally improved from prior d ay. No progression of disease. Trachea is midline. Mediastinum is distorted by rotation and supine po rtable technique. Heart and vasculature are normal. No measurable pleural effusion and no pneumothora x. No acute bony abnormality seen. No acute aortic findings suspected. IMPRESSION: Bilateral pneumonia similar or only fractionally improved from prior day.
[2020-06-21] MEDS: METHYLPREDNISOLONE 125 MG INJ IV SCH ×2 (08:12→20:00)
[2020-06-21] MEDS: GABAPENTIN 400 MG CAP PO SCH ×3 (08:13→20:00)
[2020-06-21] MEDS: ASPIRIN EC 81 MG TAB PO SCH (08:13)
[2020-06-21] MEDS: SPIRONOLACTONE 25 MG TABLET PO SCH (08:13)
[2020-06-21] MEDS: THIAMINE HCL 100 MG TABLET PO SCH (08:13)
[2020-06-21] MEDS: MONTELUKAST 10 MG TAB PO SCH (08:13)
[2020-06-21] MEDS: PANTOPRAZOLE 40MG TABLET PO SCH (08:14)
[2020-06-21] MEDS: LOSARTAN POTASSIUM 50 MG TABLET PO SCH (08:14)
[2020-06-21] MEDS: VITAMIN D 1000 UNIT TAB PO SCH (08:14)
[2020-06-21] MEDS: PROMOD 30 ML DOSE PO SCH ×2 (08:14→20:02)
[2020-06-21] MEDS: OXYBUTYNIN ER 5 MG TAB PO SCH (08:15)
[2020-06-21] MEDS: BISOPROLOL/HCTZ 5/6.25MG TAB PO SCH (08:16)
[2020-06-21] MEDS: INSULIN -REGULAR HUMAN 50 UNIT/0.5 ML ML SQ SCH ×4 (08:42→20:31)
[2020-06-21] MEDS: RIVAROXABAN 20 MG TABLET PO SCH (16:31)
[2020-06-21] MEDS: MELATONIN 3 MG TABLET PO SCH (20:01)
[2020-06-21] MEDS: ATORVASTATIN 40 MG TAB PO SCH (20:01)
[2020-06-21] MEDS: INSULIN GLARGINE 100 UNITS/ML SQ SCH (20:10)
[2020-06-22 04:57] LABS: Absolute Lymphocytes (CBC) 0.8 K/uL (0.7-4.9); Basophils % 0.1 % (0-1.3); Hematocrit 39.3 % (36.0-45.0); Lymphocytes % 5.5 % (15.3-44.8); MPV 10.2 fL (7.6-11.3); RBC Red Blood Cell Count 4.53 M/uL (3.86-4.86)
[2020-06-22 05:16] LABS: BUN Blood Urea Nitrogen 23 mg/dL (7-18); Bicarbonate 27 mmol/L (21-32); Ferritin 797.2 ng/mL (8-388); Glucose Level 205 mg/dL (74-106); Potassium 4.6 mmol/L (3.5-5.1); Sodium Level 138 mmol/L (136-145)
[2020-06-22] MEDS: VITAMIN D 1000 UNIT TAB PO SCH ×2 (07:39→07:40)
[2020-06-22] MEDS: THIAMINE HCL 100 MG TABLET PO SCH (07:39)
[2020-06-22] MEDS: ASPIRIN EC 81 MG TAB PO SCH (07:39)
[2020-06-22] MEDS: SPIRONOLACTONE 25 MG TABLET PO SCH (07:40)
[2020-06-22] MEDS: GABAPENTIN 400 MG CAP PO SCH ×3 (07:40→20:41)
[2020-06-22] MEDS: METHYLPREDNISOLONE 125 MG INJ IV SCH (07:41)
[2020-06-22] MEDS: PANTOPRAZOLE 40MG TABLET PO SCH (07:41)
[2020-06-22] MEDS: INSULIN -REGULAR HUMAN 50 UNIT/0.5 ML ML SQ SCH ×4 (07:42→20:41)
[2020-06-22] MEDS: BISOPROLOL/HCTZ 5/6.25MG TAB PO SCH (09:00)
[2020-06-22] MEDS: OXYBUTYNIN ER 5 MG TAB PO SCH (09:00)
[2020-06-22] MEDS: LOSARTAN POTASSIUM 50 MG TABLET PO SCH (09:00)
[2020-06-22] MEDS: PROMOD 30 ML DOSE PO SCH ×2 (09:00→22:09)
[2020-06-22] MEDS: MONTELUKAST 10 MG TAB PO SCH (09:00)
--- NOTE | 2020-06-22 09:38 | P.PN ---
Subjective Date of Service: 06/21/20 Chief Complaint: Respiratory failure from orozco virus Subjective: Improving THIS NOTE WAS DELAYED BY A DAY BECAUSE OF MEDITECH CRASH ON FIRST. SHE ON FIRST IS DOING LOT BETTER. SHE SAYS SO. SHE DENIES ANY PAIN. SHE IS COMFORTABLE ON HIGH FLOW OXYGEN. Review of Systems 10-point ROS is otherwise unremarkable General: Weakness Physical Examination - Vital Signs Temperature: 97.6 F Blood Pressure: 166/91 Pulse: 51 Respirations: 13 Pulse Ox (%): 93 - Physical Exam General: Moderate distress, Obese HEENT: Atraumatic, PERRLA, EOMI Neck: Supple, JVD not distended Cardiovascular: Regular rate/rhythm Musculoskeletal: No tenderness Integumentary: No rashes Neurological: Normal speech, Normal tone, Normal affect Lymphatics: No axilla or inguinal lymphadenopathy - Studies Medications List Reviewed: Yes Assessment And Plan - Current Problems (Diagnosis) (1) Diabetes Current Visit: Yes Status: Acute Plan: SHE IS NOT WATCHING DIET DESPITE ADVISE. SHE REFUSES TO GET ON INSULIN. PROGNOSIS IS GUARDED. RAISE LANTUS TO 40 U SC DAILY. Qualifiers: Diabetes mellitus type: type 2 Diabetes mellitus complication status: without complication (2) Pneumonia due to severe acute respiratory syndrome coronavirus Current Visit: Yes Status: Acute Plan: COVID PNEUMONIA. MODERATE TO SEVERE. STEROIDS IV. XARELTO PO. ZITHROMAX PO. CLINICALLY IMPROVING. CRP IS GOING DOWN IN NUMBER STABLE. STEROIDS FU CXR. OXYGEN AND BIPAP. IMPROVED CLINICALLY. CRP, OXYGENATION IMPROVED. REMDESIVIR STARTED CRP INCREASED WITH LOWER DOSE OF STEROIDS. DR. ALMONTE CALLED. STEROIDS ARE REDUCED NOW. SHE NEVER TOOK REMDESIVIR SHE DID NOT WANT TO. IMPROVING WELL. OXYGEN LOWERED. SHE MAY GO HOME NEXT WEEK.
--- NOTE | 2020-06-22 11:11 | P.PN ---
Subjective Date of Service: 06/22/20 Chief Complaint: Respiratory failure from orozco virus P patient again is doing well no new complaints and her oxygen requirements are decreasing CRP is less than 20 Review of Systems 10-point ROS is otherwise unremarkable Physical Examination - Vital Signs Temperature: 97.6 F Blood Pressure: 166/91 Pulse: 51 Respirations: 13 Pulse Ox (%): 93 - Physical Exam General: Alert, Oriented x3 Neck: Supple Respiratory: Diminished - Studies Medications List Reviewed: Yes Assessment & Plan - Problems (Diagnosis) (1) Pneumonia due to severe acute respiratory syndrome coronavirus Current Visit: Yes Status: Acute Plan: Patient is clinically improving her oxygen requirements are decreasing she is currently on 60% oxygen plan to converted to 4 L of nasal cannula lab reduce the dose of her Solu-Medrol to 40 mg IV Q 12 CRP is now on less than 20 blood pressure is mildly elevated sugars are under control at some Lasix p.o. possible discharge in 1 or 2 days
[2020-06-22] MEDS: FUROSEMIDE 40 MG TABLET PO SCH ×2 (11:59→17:36)
[2020-06-22] MEDS: RIVAROXABAN 20 MG TABLET PO SCH (17:37)
[2020-06-22] MEDS ORDERED: METHYLPREDNISOLONE 40 MG INJ ONE (20:05)
[2020-06-22] MEDS: MELATONIN 3 MG TABLET PO SCH (20:40)
[2020-06-22] MEDS: METHYLPREDNISOLONE 40 MG INJ IV SCH (20:40)
[2020-06-22] MEDS: ATORVASTATIN 40 MG TAB PO SCH (20:41)
[2020-06-22] MEDS: INSULIN GLARGINE 100 UNITS/ML SQ SCH (20:41)
--- NOTE | 2020-06-22 21:05 | P.PN ---
Subjective Date of Service: 06/22/20 Chief Complaint: Respiratory failure from orozco virus Subjective: Improving THIS NOTE WAS DELAYED BY A DAY BECAUSE OF MEDITECH CRASH ON FIRST. SHE ON FIRST IS DOING LOT BETTER. SHE SAYS SO. SHE DENIES ANY PAIN. SHE IS COMFORTABLE ON HIGH FLOW OXYGEN. SHE IS FEELING BETTER DAILY NOW. Review of Systems 10-point ROS is otherwise unremarkable Respiratory: Shortness of Breath Physical Examination - Vital Signs Temperature: 97.1 F Blood Pressure: 130/87 Pulse: 71 Respirations: 19 Pulse Ox (%): 94 - Physical Exam General: Moderate distress, Obese HEENT: Atraumatic, PERRLA, EOMI Neck: Supple, JVD not distended Cardiovascular: Regular rate/rhythm Gastrointestinal: Normal bowel sounds, No tenderness Musculoskeletal: No tenderness Integumentary: No rashes Neurological: Normal speech, Normal tone, Normal affect Lymphatics: No axilla or inguinal lymphadenopathy - Studies Medications List Reviewed: Yes Assessment And Plan - Current Problems (Diagnosis) (1) Diabetes Current Visit: Yes Status: Acute Plan: SHE IS NOT WATCHING DIET DESPITE ADVISE. SHE REFUSES TO GET ON INSULIN. PROGNOSIS IS GUARDED. RAISE LANTUS TO 40 U SC DAILY. Qualifiers: Diabetes mellitus type: type 2 Diabetes mellitus complication status: without complication (2) Pneumonia due to severe acute respiratory syndrome coronavirus Current Visit: Yes Status: Acute Plan: COVID PNEUMONIA. MODERATE TO SEVERE. STEROIDS IV. XARELTO PO. ZITHROMAX PO. CLINICALLY IMPROVING. CRP IS GOING DOWN IN NUMBER STABLE. STEROIDS FU CXR. OXYGEN AND BIPAP. IMPROVED CLINICALLY. CRP, OXYGENATION IMPROVED. REMDESIVIR STARTED CRP INCREASED WITH LOWER DOSE OF STEROIDS. DR. ALMONTE CALLED. STEROIDS ARE REDUCED NOW. SHE NEVER TOOK REMDESIVIR SHE DID NOT WANT TO. IMPROVING WELL. OXYGEN LOWERED. SHE MAY GO HOME NEXT WEEK. CRP IS DOWN TO 11. HOPEFULLY NOW OXYGENATION WILL IMPROVE SOON.
[2020-06-23 05:19] VITALS: BMI 40.3
[2020-06-23 06:02] LABS: Basophils % 0.2 % (0-1.3); Hematocrit 39.7 % (36.0-45.0); MPV 10.3 fL (7.6-11.3); RBC Red Blood Cell Count 4.59 M/uL (3.86-4.86)
[2020-06-23 06:19] LABS: BUN Blood Urea Nitrogen 22 mg/dL (7-18); Bicarbonate 30 mmol/L (21-32); C-Reactive Protein 7.49 mg/L (<3.00); Ferritin 804.1 ng/mL (8-388); Glucose Level 201 mg/dL (74-106); Magnesium 2.1 mg/dL (1.8-2.4); Phosphorus 3.5 mg/dL (2.5-4.9); Potassium 4.5 mmol/L (3.5-5.1); Sodium Level 139 mmol/L (136-145)
[2020-06-23] MEDS: INSULIN -REGULAR HUMAN 50 UNIT/0.5 ML ML SQ SCH ×4 (07:30→20:04)
[2020-06-23 08:52] LABS: White Blood Cell Scan OK (OK)
[2020-06-23 08:53] LABS: Blood Morphology Comment NOT SEEN (NOT SEEN); Platelet Estimate ADEQ
[2020-06-23] MEDS: PROMOD 30 ML DOSE PO SCH ×2 (09:00→20:05)
[2020-06-23] MEDS: FUROSEMIDE 40 MG TABLET PO SCH ×2 (09:00→17:32)
[2020-06-23] MEDS: MONTELUKAST 10 MG TAB PO SCH (09:00)
[2020-06-23] MEDS: PANTOPRAZOLE 40MG TABLET PO SCH (09:00)
[2020-06-23] MEDS: GABAPENTIN 400 MG CAP PO SCH ×3 (09:00→20:03)
[2020-06-23] MEDS: LOSARTAN POTASSIUM 50 MG TABLET PO SCH (09:00)
[2020-06-23] MEDS: SPIRONOLACTONE 25 MG TABLET PO SCH (09:00)
[2020-06-23] MEDS: OXYBUTYNIN ER 5 MG TAB PO SCH (09:00)
[2020-06-23] MEDS: BISOPROLOL 5 MG TABLET PO SCH (09:00)
[2020-06-23] MEDS: METHYLPREDNISOLONE 40 MG INJ IV SCH ×2 (09:05→20:03)
[2020-06-23] MEDS: ASPIRIN EC 81 MG TAB PO SCH (09:06)
[2020-06-23] MEDS: THIAMINE HCL 100 MG TABLET PO SCH (09:06)
--- NOTE | 2020-06-23 10:23 | P.PN ---
Subjective Date of Service: 06/23/20 Chief Complaint: Respiratory failure from orozco virus Patient is doing much better no new complaints denies any shortness of breath oxygen loop requirements have been decreasing Review of Systems Unremarkable Physical Examination - Vital Signs Temperature: 98.4 F Blood Pressure: 120/83 Pulse: 90 Respirations: 18 Pulse Ox (%): 97 - Physical Exam General: Alert, Oriented x3 Respiratory: Clear to auscultation bilaterally Cardiovascular: No edema, Regular rate/rhythm - Studies Medications List Reviewed: Yes Assessment & Plan - Problems (Diagnosis) (1) Pneumonia due to severe acute respiratory syndrome coronavirus Current Visit: Yes Status: Acute Plan: patient is improving doing much better plan to titrate to 4 L of nasal cannula oxygen maintain sat 85-90 possible discharge on prednisone 20 mg twice a day for a week and then taper it down to 10 twice a day for another week in you with multi vitamin supplementation vitamin-D melatonin zinc white count is stable
[2020-06-23] MEDS: RIVAROXABAN 20 MG TABLET PO SCH (17:32)
[2020-06-23] MEDS: MELATONIN 3 MG TABLET PO SCH (20:03)
[2020-06-23] MEDS: INSULIN GLARGINE 100 UNITS/ML SQ SCH ×2 (20:04→20:05)
[2020-06-23] MEDS: ATORVASTATIN 40 MG TAB PO SCH (20:04)
--- NOTE | 2020-06-23 22:36 | P.PN ---
Subjective Date of Service: 06/23/20 Chief Complaint: Respiratory failure from orozco virus Subjective: Improving THIS NOTE WAS DELAYED BY A DAY BECAUSE OF MEDITECH CRASH ON FIRST. SHE ON FIRST IS DOING LOT BETTER. SHE SAYS SO. SHE DENIES ANY PAIN. SHE IS COMFORTABLE ON HIGH FLOW OXYGEN. SHE IS FEELING BETTER DAILY NOW. SHE FEELS REALLY GOOD NOW. WORKING ON REDUCING OXYGEN. Physical Examination - Vital Signs Temperature: 97.2 F Blood Pressure: 93/75 Pulse: 79 Respirations: 20 Pulse Ox (%): 90 - Physical Exam General: Mild distress, Moderate distress, Obese HEENT: Atraumatic, PERRLA, EOMI Neck: Supple, JVD not distended Respiratory: Clear to auscultation bilaterally, Normal air movement Cardiovascular: Regular rate/rhythm, Normal S1 S2 Gastrointestinal: Normal bowel sounds, No tenderness Musculoskeletal: No tenderness Integumentary: No rashes Neurological: Normal speech, Normal tone, Normal affect Lymphatics: No axilla or inguinal lymphadenopathy - Studies Medications List Reviewed: Yes Assessment And Plan - Current Problems (Diagnosis) (1) Diabetes Current Visit: Yes Status: Acute Plan: SHE IS NOT WATCHING DIET DESPITE ADVISE. SHE REFUSES TO GET ON INSULIN. PROGNOSIS IS GUARDED. RAISE LANTUS TO 40 U SC DAILY. Qualifiers: Diabetes mellitus type: type 2 Diabetes mellitus complication status: without complication (2) Pneumonia due to severe acute respiratory syndrome coronavirus Current Visit: Yes Status: Acute Plan: COVID PNEUMONIA. MODERATE TO SEVERE. STEROIDS IV. XARELTO PO. ZITHROMAX PO. CLINICALLY IMPROVING. CRP IS GOING DOWN IN NUMBER STABLE. STEROIDS FU CXR. OXYGEN AND BIPAP. IMPROVED CLINICALLY. CRP, OXYGENATION IMPROVED. REMDESIVIR STARTED CRP INCREASED WITH LOWER DOSE OF STEROIDS. DR. ALMONTE CALLED. STEROIDS ARE REDUCED NOW. SHE NEVER TOOK REMDESIVIR SHE DID NOT WANT TO. IMPROVING WELL. OXYGEN LOWERED. SHE MAY GO HOME NEXT WEEK. CRP IS DOWN TO 11. HOPEFULLY NOW OXYGENATION WILL IMPROVE SOON.
[2020-06-24 01:27] VITALS: TEMP 96.8
[2020-06-24 06:10] LABS: Basophils % 0.2 % (0-1.3); Hematocrit 39.6 % (36.0-45.0); Lymphocytes % 5.8 % (15.3-44.8); MPV 10.1 fL (7.6-11.3); RBC Red Blood Cell Count 4.57 M/uL (3.86-4.86)
[2020-06-24 06:31] LABS: BUN Blood Urea Nitrogen 27 mg/dL (7-18); Bicarbonate 31 mmol/L (21-32); C-Reactive Protein 4.72 mg/L (<3.00); Glucose Level 208 mg/dL (74-106); Potassium 4.3 mmol/L (3.5-5.1); Sodium Level 140 mmol/L (136-145)
[2020-06-24 08:59] VITALS: O2SAT 95
[2020-06-24] MEDS: PROMOD 30 ML DOSE PO SCH (09:00)
[2020-06-24] MEDS: VITAMIN D 1000 UNIT TAB PO SCH (09:00)
--- NOTE | 2020-06-24 09:07 | P.PN ---
Subjective Date of Service: 06/24/20 Chief Complaint: Respiratory failure from orozco virus Patient has improved significantly non 4 L of nasal cannula oxygen no new complaints Review of Systems Unremarkable Physical Examination - Vital Signs Temperature: 96.8 F Blood Pressure: 146/73 Pulse: 63 Respirations: 17 Pulse Ox (%): 94 - Physical Exam General: Alert, In no apparent distress, Oriented x3 Respiratory: Clear to auscultation bilaterally - Studies Medications List Reviewed: Yes Assessment & Plan - Problems (Diagnosis) (1) Pneumonia due to severe acute respiratory syndrome coronavirus Current Visit: Yes Status: Acute Plan: Is been is significant improvement in the patient's condition patient to be discharged on 4 L of nasal cannula oxygen to follow up with me in 1 or 2 weeks I recommend tapering dose of prednisone 20 b.i.d. for a week then 10 b.i.d. for another week the continue with full anticoagulation for a month CRP is now on less than 5
[2020-06-24] MEDS: INSULIN -REGULAR HUMAN 50 UNIT/0.5 ML ML SQ SCH ×2 (10:59→12:14)
[2020-06-24] MEDS: METHYLPREDNISOLONE 40 MG INJ IV SCH (11:00)
[2020-06-24] MEDS: THIAMINE HCL 100 MG TABLET PO SCH (11:00)
[2020-06-24] MEDS: ASPIRIN EC 81 MG TAB PO SCH (11:00)
[2020-06-24] MEDS: FUROSEMIDE 40 MG TABLET PO SCH (11:01)
[2020-06-24] MEDS: PANTOPRAZOLE 40MG TABLET PO SCH (11:03)
[2020-06-24] MEDS: GABAPENTIN 400 MG CAP PO SCH (11:03)
[2020-06-24] MEDS: BISOPROLOL 5 MG TABLET PO SCH (11:03)
[2020-06-24] MEDS: SPIRONOLACTONE 25 MG TABLET PO SCH (11:04)
[2020-06-24] MEDS: OXYBUTYNIN ER 5 MG TAB PO SCH (11:05)
[2020-06-24] MEDS: MONTELUKAST 10 MG TAB PO SCH (11:06)
[2020-06-24 15:43] VITALS: BP 106/71
--- NOTE | 2020-06-26 06:48 | P.DS ---
Admission Date: 06/10/20 Discharge Date: 06/26/20 Disposition: ROUTINE DISCHARGE Discharge Condition: FAIR Reason for Admission: Respiratory failure from orozco virus - Problems (1) Diabetes Status: Acute Qualifiers: Diabetes mellitus type: type 2 Diabetes mellitus complication status: without complication (2) Pneumonia due to severe acute respiratory syndrome coronavirus Status: Acute Brief History of Present Illness: MS. FELTON STARTED TO HAVE DYSPNEA TWO DAYS AGO. HER FAMILY ALSO TWO PEOPLE HAD SYMPTOMS ABOUT THE SAME TIME. SHE HAS NO COUGH, NO CHEST PAIN. SHE IS A NON COMPLIANT, [employer]ESE DIAB[employer] THAT IS A RISK FACTOR FOR COVID INFECTIONS. Hospital Course: REGULO IS A NON COMPLIANT [employer] WHO DEVELOPED COVID RELATED PNEUMONIA. IT TOOK HER TWO WEEKS OF STEROIDS, AC AND HIGH FLOW OXYGEN TO RECOVER DOWN TO 4 LT NC. SHE IS DISCHARGED IN STABLE CONDITION WITH GUARDED PROGNOSIS. Vital Signs/Physical Exam: Temp Pulse Resp BP Pulse Ox 96.8 F 73 18 106/71 91 06/24/20 09:07 06/24/20 14:00 06/24/20 14:00 06/24/20 14:00 06/24/20 14:00 Laboratory Data at Discharge: WBC 17.0 K/uL (4.3-10.9) H 06/24/20 05:43 Hgb 12.9 g/dL (12.0-15.0) 06/24/20 05:43 Hct 39.6 % (36.0-45.0) 06/24/20 05:43 Plt Count 224 K/uL (152-406) 06/24/20 05:43 PT 13.7 SECONDS (9.5-12.5) H 06/10/20 17:00 INR 1.16 06/10/20 17:00 Sodium 140 mmol/L (136-145) 06/24/20 05:43 Potassium 4.3 mmol/L (3.5-5.1) 06/24/20 05:43 BUN 27 mg/dL (7-18) H 06/24/20 05:43 Creatinine 0.71 mg/dL (0.55-1.3) 06/24/20 05:43 Glucose 208 mg/dL (74-106) H 06/24/20 05:43 Phosphorus 3.5 mg/dL (2.5-4.9) 06/23/20 04:40 Magnesium 2.1 mg/dL (1.8-2.4) 06/23/20 04:40 Total Bilirubin 0.3 mg/dL (0.2-1.0) 06/18/20 04:46 AST 25 U/L (15-37) 06/18/20 04:46 ALT 33 U/L (12-78) 06/18/20 04:46 Alkaline Phosphatase 114 U/L (45-117) 06/18/20 04:46 Troponin I < 0.02 ng/mL (0.0-0.045) 06/11/20 00:46 Triglycerides 104 mg/dL (<150) 06/11/20 04:46 Cholesterol 109 mg/dL (<200) 06/11/20 04:46 HDL Cholesterol 49 mg/dL (40-60) 06/11/20 04:46 Cholesterol/HDL Ratio 2.22 06/11/20 04:46 Home Medications: Cyclobenzaprine [Flexeril*] 10 mg PO TID PRN 04/18/14 Esomeprazole Mag Trihydrate [Nexium] 40 mg PO DAILY 04/18/14 Fluticasone [Flonase 50MCG Nasal [place]*] 0.05 mg IH DAILY 04/18/14 Gabapentin [Neurontin*] 400 mg PO TID 04/18/14 Losartan Potassium [Cozaar*] 100 mg PO DAILY 04/18/14 Meclizine HCl [Antivert*] 25 mg PO TID PRN 04/18/14 Bisoprolol Fumarate/Hctz [Bisoprolol-Hctz 5-6.25 mg Tab] 1 tab PO DAILY 06/11/20 Empagliflozin/Metformin HCl [Synjardy 12.5-1,000 mg Tablet] 1 tab PO DAILY 06/11/20 Montelukast [Singulair*] 10 mg PO DAILY 06/11/20 Oxybutynin Chloride [Oxybutynin Chloride ER] 1 tab PO DAILY 06/11/20 methocarbamoL [Robaxin] 500 mg PO TID PRN 06/11/20 Insulin Glargine,Hum.rec.anlog [Lantus Solostar] 50 unit SQ DAILY #30 ml 06/24/20 Rivaroxaban [Xarelto] 20 mg PO DAILY #30 tablet 06/24/20 predniSONE [Deltasone] 20 mg PO BID #60 tab 06/24/20 New Medications: Insulin Glargine,Hum.rec.anlog [Lantus Solostar] 50 unit SQ DAILY #30 ml predniSONE [Deltasone] 20 mg PO BID #60 tab Rivaroxaban [Xarelto] 20 mg PO DAILY #30 tablet
== END 2020-06-24 15:05 | disposition home or self-care (01) | DRG 177 ==
LOC: ER 16:13 → ERHOLD 20:52 → 3RD-ICU 22:36
PROVIDERS: ADMIT Internal Medicine; ATTEND Internal Medicine
PROC: 5A09557 Assistance with Respiratory Ventilation, Greater than 96 Consecutive Hours, Continuous Positive Airway Pressure (ICD-10-PCS; principal; 2020-06-10)
PROC: XW033E5 Introduction of Remdesivir Anti-infective into Peripheral Vein, Percutaneous Approach, New Technology Group 5 (ICD-10-PCS; 2020-06-11)
DX: U07.1 COVID-19 (principal); J80 Acute respiratory distress syndrome; J12.89 Other viral pneumonia; Z68.41 Body mass index [BMI] 40.0-44.9, adult; E66.9 Obesity, unspecified; E11.40 Type 2 diabetes mellitus with diabetic neuropathy, unspecified; J45.909 Unspecified asthma, uncomplicated; K21.9 Gastro-esophageal reflux disease without esophagitis; I10 Essential (primary) hypertension; Z79.84 Long term (current) use of oral hypoglycemic drugs; Z79.899 Other long term (current) drug therapy; Z53.29 Procedure and treatment not carried out because of patient's decision for other reasons; Z91.11 Patient's noncompliance with dietary regimen
CPT/HCPCS: 36415; 71045; 80048; 80061; 80076; 81003; 82728; 82805; 82947; 83605; 83735; 83880; 84100; 84145; 84484; 85025; 85379; 85610; 86140; 87040; 87804; 93005; 94002; 94003; 94660; 96361; 96365; 96366; 96368; 96375; 99285; J0456; J0696; J1100; J1815; J1940; J2920; J2930; J7030; J7040; J7050; U0003